=== PATIENT | female | born 1950 | race Caucasian/White ===

== ENCOUNTER 2022-07-29 12:47 | Outpatient (CLI) | payer MEDICARE, BC, SELFPAY ==
--- NOTE | 2022-07-29 13:00 | CRLHL7_ITS ---
For Patients: As a result of the Cures Act, medical imaging exams and procedure reports are released immediately into your electronic medical record. You may view this report before your referring provider. If you have questions, please contact your health care provider. DXA BONE MINERAL DENSITY STUDY, 07/29/2022 Current height (inches): 66.0 Weight (lbs.): 160.0 Menopause age: 46 Ethnicity: White 1. Have you had a previous hip or vertebral fracture? No. 2. Have you had any fractures during your adult life which did not result from significant trauma (e.g., auto accident)? Yes. 3. Did either of your parents have a hip fracture? No. 4. Do you smoke? No. 5. Have you ever taken Glucocorticoids? No. 6. Do you have rheumatoid arthritis? No. 7. Do you have secondary osteoporosis? No. 8. Do you drink 3 or more alcoholic drinks per day? No. 9. Are you being treated for osteoporosis? No. 10. Have you ever taken any of the following medications: Actonel, Evista, Fosamax, Miacalcin, Reclast, Boniva, Forteo, HRT (i.e., estrogen/hormone therapy), Protelos, Prolia, Vitamin D, Calcium, other ??? please specify. ANSWER: Yes; vitamin D and calcium. 11. Do you have any of the following medical conditions: Anorexia or bulimia, asthma or emphysema, end stage renal disease, hyperparathyroidism, any seizure disorders, cancer, inflammatory bowel diseases, hysterectomy, other ??? please specify. ANSWER: Yes; cancer and hysterectomy. 12. What was your maximum height (inches)? 67. 13. Do you perform weight bearing exercise regularly? No. 14. Do you regularly consume dairy products? No. 15. Do you drink caffeinated beverages? Yes. 16. At what age did your period start? Not provided. 17. Are you premenopausal? No. 18. How many full-term pregnancies have you had? 0. 19. Have you ever missed your period for more than 6 months in a row (not including or menopause)? No. TECHNIQUE: Bone mineral density study was performed using the [employer]. FINDINGS: The results of the study expressed as bone mineral density (BMD) are as follows: Lumbar Spine L1 to L4: BMD: 1.028 g/cm2. T-score: -0.2. Z-score: 2.0. Neck Left: BMD: 0.702 g/cm2. T-score: -1.3. Z-score: 0.6. Right: BMD: 0.831 g/cm2. T-score: -0.2. Z-score: 1.7. Total Left: BMD: 0.757 g/cm2. T-score: -1.5. Z-score: 0.1. Right: BMD: 0.783 g/cm2. T-score: -1.3. Z-score: 0.3. IMPRESSION: Osteopenia. FRAX 10-year Fracture Risk Major Osteoporotic Fracture: 16 percent Hip Fracture: 2.1 percent Reported Risk Factors: [place] () Neck BMD = 0.702, BMI = 25.8, previous fracture. MARISELA MIN M.D. Diagnostic/Breast Radiologist [email or web address] Transcribed: 5:[address]/Dictated by: Marisela Min MD @ 07/30/2022 4:47:00 PM (Electronically Signed)
== END 2022-07-29 12:48 | disposition home or self-care (01) ==
LOC: RAD 12:50
PROVIDERS: PCP Family Medicine; Visit Provider Family Medicine
DX: M81.0 Age-related osteoporosis without current pathological fracture (principal)
CPT/HCPCS: 77080

== ENCOUNTER 2022-09-22 13:41 | Outpatient (REF) | payer MEDICARE, BC, SELFPAY ==
[2022-09-22 13:59] LABS: Basophils Absolute Auto 0.04 K/uL (0.00-0.30); Basophils Percent Auto 0.6 % (0.0-3.0); Eosinophils Absolute Auto 0.23 K/uL (0.00-0.50); Eosinophils Percent Auto 3.6 % (0.0-7.0); Hematocrit 38.3 % (33.0-51.0); Hemoglobin* 12.7 gm/dL (12.0-16.0); Immature Granulocytes Abs Auto 0.01 K/uL (0.00-0.30); Lymphocytes Percent Auto 14.9 % (20-44); Mean Corpuscular HGB Conc 33 gm/dL (32-36); Mean Corpuscular Hemoglobin 31 pg (26-34); Mean Corpuscular Volume 93 fL (80-100); Neutrophils Percent Auto 72.7 % (42.0-72.0); Platelet Count* 296 K/uL (140-440); RDW Coefficient of Variation % 11.8 % (11.5-15.5); Red Blood Count 4.14 m/uL (4.00-5.20); White Blood Count* 6.39 K/uL (4.50-11.00)
[2022-09-22 14:05] LABS: Slide Review Reflex No
[2022-09-22 16:54] LABS: Chloride* 106 mmol/L (96-114); Potassium* 4.7 mmol/L (3.6-5.1); Sodium* 138 mmol/L (135-149)
[2022-09-22 16:57] LABS: Blood Urea Nitrogen* 17 mg/dL (7-30); Cholesterol* 166 mg/dL (90-199); Creatinine* 0.6 mg/dL (0.5-1.5); Estimated Glomerular Filt Rate 96 ml/min
[2022-09-22 16:59] LABS: Calcium* 7.5 mg/dL (8.4-10.6); Glucose* 115 mg/dL (60-115); HDL Cholesterol* 39 mg/dL (>=50); LDL Cholesterol Calculated 90 mg/dL (<100); Triglycerides* 183 mg/dL (40-149)
[2022-09-22 17:13] LABS: Carbon Dioxide* 23 mmol/L (20-32)
[2022-09-22 22:51] LABS: Thyroid Stimulating Hormone* 0.404 uIU/mL (0.270-4.20)
== END 2022-09-22 13:42 | disposition home or self-care (01) ==
LOC: NPINS 13:41
PROVIDERS: PCP Family Medicine; Visit Provider Nurse Practitioner Gerontology
DX: E03.9 Hypothyroidism, unspecified (principal)
CPT/HCPCS: 80048; 80061; 84443; 85025

== ENCOUNTER 2023-03-13 16:12 | Outpatient (CLI) | payer MEDICARE, BC, SELFPAY | END 2023-03-13 16:13 | disposition home or self-care (01) | LOC: AMB 03-15 13:10 | PROVIDERS: PCP Family Medicine; Visit Provider Family Medicine | DX: S79.912A Unspecified injury of left hip, initial encounter (principal); W18.30XA Fall on same level, unspecified, initial encounter; Y92.003 Bedroom of unspecified non-institutional (private) residence as the place of occurrence of the external cause | CPT/HCPCS: A0425; A0429 ==

== ENCOUNTER 2023-03-13 16:46 | Inpatient (IN) | payer MEDICARE, BC, SELFPAY ==
[2023-03-13 16:54] VITALS: BP 187/75; PULSE 72; RESP 16; TEMP 35.9; O2SAT 96; BMI 25.1
--- NOTE | 2023-03-13 17:06 | CRLHL7_ITS ---
For Patients: As a result of the Cures Act, medical imaging exams and procedure reports are released immediately into your electronic medical record. You may view this report before your referring provider. If you have questions, please contact your health care provider. INDICATION: Pain after fall COMPARISON: None available. FINDINGS: An supine single view of the chest was obtained at 1900 hours. There is shallow inspiration resulting in crowding of lung markings. There is moderate eventration of the right hemidiaphragm. There is mild patchy atelectasis in both lung bases. There is no sign of rib fracture. No pneumothorax is evident, but sensitivity is limited by supine positioning. The heart is normal in size. The mediastinum is normal in appearance. The osseous structures are normal in appearance for the patient`s age. IMPRESSION: Shallow inspiration resulting in crowding of lung markings. Mild patchy atelectasis in both lung bases. Moderate eventration of the right hemidiaphragm. Dictated by Eyad Ramos MD @ 03/13/2023 8:48:27 PM (Electronically Signed)
--- NOTE | 2023-03-13 17:06 | CRLHL7_ITS ---
For Patients: As a result of the Cures Act, medical imaging exams and procedure reports are released immediately into your electronic medical record. You may view this report before your referring provider. If you have questions, please contact your health care provider. INDICATION: Fall. COMPARISON: None. TECHNIQUE: Noncontrast CT head. FINDINGS: Mild generalized volume loss. No acute intracranial hemorrhage, acute infarct, focal edema, mass effect, or fracture. No midline shift. No abnormal ventricular dilatation. Normal calvarium and skull base. Visualized paranasal sinuses and mastoid air cells are clear. Normal orbits bilaterally. IMPRESSION: 1. No acute intracranial abnormality. Please note that all CT scans at this facility use dose modulation, iterative reconstruction, and/or weight-based dosing when appropriate to reduce radiation dose to as low as reasonably achievable. Dictated by Gabriel Kwong MD @ 03/13/2023 8:14:35 PM (Electronically Signed)
--- NOTE | 2023-03-13 17:06 | CRLHL7_ITS ---
For Patients: As a result of the Cures Act, medical imaging exams and procedure reports are released immediately into your electronic medical record. You may view this report before your referring provider. If you have questions, please contact your health care provider. INDICATION: Fall. COMPARISON: None. TECHNIQUE: Noncontrast CT cervical spine. FINDINGS: Normal vertebral body facet alignment. No acute fractures. No vertebral body loss of height. No spondylolisthesis. No fractures of the visualized upper ribs. Cervical spondylosis with multilevel disc degeneration. Multilevel uncovertebral facet degeneration. C1-2: No spinal canal narrowing. C2-3: No splenic no neural foraminal narrowing. C3-4: No narrowing of spinal canal. Mild narrowing of left neural foramen. No narrowing of the right neural foramen. C4-5: No narrowing of spinal canal. Mild narrowing of bilateral foramina. C5-6: No narrowing of spinal canal. Uncovertebral joint hypertrophy results in moderate narrowing of the left neural foramen. No narrowing of the right neural foramen. C6-7: No narrowing of spinal canal. Mild narrowing of the left neural foramen. No narrowing of the right neural foramen. C7-T1: No spinal canal or neural foraminal narrowing. Lung apices are clear. IMPRESSION: 1. Normal alignment. No fractures. 2. Cervical spondylosis. 3. At C3-4, mild narrowing of the neural foramina 4. At C4-5, mild narrowing of both neural foramina 5. At C5-6, moderate narrowing of the left neuroforamen Please note that all CT scans at this facility use dose modulation, iterative reconstruction, and/or weight-based dosing when appropriate to reduce radiation dose to as low as reasonably achievable. Dictated by Gabriel Kwong MD @ 03/13/2023 8:16:38 PM (Electronically Signed)
--- NOTE | 2023-03-13 17:11 | CRLHL7_ITS ---
For Patients: As a result of the Cures Act, medical imaging exams and procedure reports are released immediately into your electronic medical record. You may view this report before your referring provider. If you have questions, please contact your health care provider. INDICATION: Pain after fall COMPARISON: None available. FINDINGS: The left hip was examined with AP and cross-table lateral views. An AP view of the pelvis is obtained for a total of three views. There is an acute, comminuted, impacted intertrochanteric fracture of the left hip with components in moderate varus. The left femoral head and acetabulum are in anatomic alignment. There is mild primary osteoarthritis of both hips with moderate joint space narrowing, but no additional degenerative change. The right hip is intact with no sign of fracture. There is mild primary osteoarthritis of both sacroiliac joints with mild sclerosis. The sacroiliac joints are intact. There is no sign of sacral fracture. The pubic symphysis is intact. The bowel gas pattern is unremarkable. IMPRESSION: Acute, comminuted, impacted, intertrochanteric fracture of the left hip with moderate varus angulation. Mild primary osteoarthritis of both hips. Dictated by Eyad Ramos MD @ 03/13/2023 8:50:45 PM (Electronically Signed)
[2023-03-13 17:15] VITALS: O2SAT 97
[2023-03-13 17:16] VITALS: O2SAT 94
[2023-03-13 17:29] LABS: Basophils Absolute Auto 0.02 K/uL (0.00-0.30); Basophils Percent Auto 0.3 % (0.0-3.0); Eosinophils Percent Auto 2.6 % (0.0-7.0); Hematocrit 40.2 % (33.0-51.0); Hemoglobin* 13.5 gm/dL (12.0-16.0); Immature Granulocytes Abs Auto 0.02 K/uL (0.00-0.30); Immature Granulocytes Pct Auto 0.3 %; Lymphocytes Percent Auto 12.9 % (20-44); Mean Corpuscular HGB Conc 34 gm/dL (32-36); Mean Corpuscular Hemoglobin 30 pg (26-34); Mean Corpuscular Volume 89 fL (80-100); Monocytes Percent Auto 5.6 % (0.0-11.0); Neutrophils Percent Auto 78.3 % (42.0-72.0); Platelet Count* 297 K/uL (140-440); RDW Coefficient of Variation % 12.2 % (11.5-15.5); White Blood Count* 7.84 K/uL (4.50-11.00)
[2023-03-13 17:39] LABS: Slide Review Reflex No
[2023-03-13 17:42] LABS: Chloride* 105 mmol/L (96-114); Sodium* 136 mmol/L (135-149)
[2023-03-13 17:44] LABS: Creatinine* 0.7 mg/dL (0.5-1.5); Est. Creatinine Clearance* 49.45; Estimated Glomerular Filt Rate 92 ml/min; INR 0.88 (0.91-1.10); Partial Thromboplastin Time* 27 Seconds (23-33); Prothrombin Time 12.5 Seconds
[2023-03-13 17:45] LABS: Blood Urea Nitrogen* 18 mg/dL (7-30); Calcium* 8.7 mg/dL (8.4-10.6); Carbon Dioxide* 24 mmol/L (20-32); Glucose* 141 mg/dL (60-115)
--- NOTE | 2023-03-13 17:48 | ED_ITS ---
HPI - Fall General Date Seen: 03/13/23 Chief Complaint: Hip Injury/Pain Stated Complaint: fell and injured hip Time Seen by Provider: 03/13/23 17:02 Source: patient and EMS Mode of arrival: EMS Limitations: no limitations and altered mental status History of Present Illness HPI Narrative: Patient is a 73-year-old female presents here from home, after she fell on her left side, injuring her left hip, initially from EMS told me she did not hit her head but she is able to tell me that she had her left ear, when she went down. In fact she thinks she might a organ assembler hearing aid. She is also a little bit altered secondary to the fentanyl that they gave her coming over here. They do note that her left leg is shortened and externally rotated. She tells me she has never before had surgery on that hip. Denies any significant headache nausea, vomiting, but again she has received fentanyl. MD complaint: fall Place fall occurred: home Loss of consciousness: No Prolonged down time: no Symptoms prior to fall: none Context: tripped/slipped Location of injury: pelvis Location of injury - extremities: Left: thigh Severity: moderate Associated symptoms (after fall): denies Related Data Home Medications Medication Instructions Recorded Confirmed acetaminophen 650 mg 1,300 mg PO Q8H PRN pain 03/13/23 03/13/23 tablet,extended release (8 Hour Pain Reliever) albuterol sulfate 90 mcg/actuation 2 puff inhalation Q6H PRN dyspnea 03/13/23 03/13/23 aerosol inhaler amantadine HCl 100 mg tablet 100 mg PO BID 03/13/23 03/13/23 azelastine 137 mcg (0.1 %) nasal 2 spray intranasal BID congestion 03/13/23 03/13/23 spray aerosol calcium carbonate 600 mg calcium 600 mg feeding tube Q1-2H PRN 03/13/23 03/13/23 (1,500 mg) tablet carbidopa 25 mg-levodopa 100 mg 1.5 tab PO 3XD 03/13/23 03/13/23 tablet carbidopa ER 50 mg-levodopa 200 mg 1 tab PO QPM 03/13/23 03/13/23 tablet,extended release cetirizine 10 mg tablet 5 mg PO BID 03/13/23 03/13/23 diltiazem HCl 240 mg 240 mg PO DAILY blood pressure 03/13/23 03/13/23 tablet,extended release 24 hr (Matzim [place]) duloxetine 60 mg capsule,delayed 60 mg PO QPM 03/13/23 03/13/23 release furosemide 20 mg tablet 10 mg PO DAILY edema 03/13/23 03/13/23 guaifenesin 600 mg tablet, 600 mg PO Q12H PRN 03/13/23 03/13/23 extended release 12 hr (Mucus Relief ER) levothyroxine 175 mcg tablet 175 mcg PO DAILY 03/13/23 03/13/23 melatonin 3 mg capsule 3 mg PO QHS 03/13/23 03/13/23 metoprolol succinate 50 mg 50 mg PO DAILY 03/13/23 03/13/23 tablet,extended release 24 hr sennosides 8.6 mg-docusate sodium 1 tab PO DAILY 03/13/23 03/13/23 50 mg tablet (Stool Softener-Stimulant Laxative) simvastatin 10 mg tablet 10 mg PO DAILY cholesterol 03/13/23 03/13/23 Allergies Allergy/AdvReac Type Severity Reaction Status Date / Time lisinopril Allergy Unknown Verified 03/13/23 17:03 Review of Systems Status of ROS: Reports: 10 or more systems reviewed and unremarkable except as noted in History and below [facility] Social History Smoking Status: Never smoker Do you use any of these nicotine containing products: None Second hand tobacco smoke exposure: No How often do you have a drink containing alcohol: never AUDIT-C Alcohol total score: 0 Non-prescribed substance use: denies use service: No Exam Narrative: Exam Narrative: Patient is seen in room a, she appears to be in no distress her vital signs are reviewed, pupils are equal round reactive to light she is very [place] cheeks, her TMs are normal, with hearing aids, in suture that are removed, she has a little bit of an abrasion over her left mastoid, slight neck area but I do not see any depressed fracture, no hematoma along her neck, good tire balancer strength bilaterally in upper extremities, both proximally distally chest is good air entry bilateral with no wheezing crackles noted heart sounds are normal, her abdomen is soft and obese her pelvis is stable to rocking but she is sore in her left hip, she refuses to move her left leg her right leg has full range of motion, and no evidence of any injury. Const: Vital Signs, click to edit/add: Vital Signs - 24 hr 03/13/23 16:54 03/13/23 17:16 03/13/23 17:15 Temperature 96.7 F L Pulse Rate [Pulse Oximeter] 72 Respiratory Rate 16 Blood Pressure [Ri ght Upper Arm] 187/75 H Pulse Oximetry 96 94 97 Oxygen Delivery Me thod Nasal Cannula Nasal Cannula Oxygen Flow Rate 3 3 Documenting provider has reviewed patient's vital signs: yes Course Reevaluation(s) Reevaluation #1: I discussed with the patient, the hip fracture, her head CT and neck CT look good by my review, her chest x-ray and EKG were also done which show no acute findings, explained to her and then also her sister on the phone hers of her POA that she should be admitted, I also discussed with her doing a fascia iliaca block on the left side, she is not on blood thinners and there is no complication used ultrasound was able to identify the nerve artery and vein, I was able to inject 20 mL of ropivacaine in the area, she had decreased pain, although she told me she still had pain, was able to move her hip through range of motion with no pain. I did discuss with hospitalist the admission, Dr. Jama, I also discussed with the orthopedic PA on-call Dr. Ketty Thomas. Vital Signs Vital signs: Initial Vital Signs Temperature 96.7 F L 03/13/23 16:54 Temperature Source Temporal Artery Scan 03/13/23 16:54 Pulse Rate 72 03/13/23 16:54 Pulse Rhythm Regular 03/13/23 16:54 Pulse Strength 3+ Normal 03/13/23 16:54 Respiratory Rate 16 03/13/23 16:54 Blood Pressure 187/75 H 03/13/23 16:54 Blood Pressure Mean 112 03/13/23 16:54 Blood Pressure Position Supine 03/13/23 16:54 Pulse Oximetry 96 03/13/23 16:54 Oxygen Delivery Method Nasal Cannula 03/13/23 16:54 Oxygen Flow Rate 3 03/13/23 16:54 Vital Signs Temperature 96.7 F L 03/13/23 16:54 Pulse Rate 72 03/13/23 16:54 Respiratory Rate 16 03/13/23 16:54 Blood Pressure 187/75 H 03/13/23 16:54 Pulse Oximetry 96 03/13/23 16:54 Oxygen Delivery Method Nasal Cannula 03/13/23 16:54 Oxygen Flow Rate 3 03/13/23 16:54 Temperature 96.7 F L 03/13/23 16:54 Pulse Rate 72 03/13/23 16:54 Respiratory Rate 16 03/13/23 16:54 Blood Pressure 187/75 H 03/13/23 16:54 Pulse Oximetry 94 03/13/23 17:16 Oxygen Delivery Method Nasal Cannula 03/13/23 17:16 Oxygen Flow Rate 3 03/13/23 17:16 MDM - Fall MDM Narrative Medical decision making narrative: Life-threatening differential diagnosis is considered include: Subarachnoid hemorrhage, subdural hemorrhage, epidural hemorrhage. Other differential diagnosis considered include concussion, closed head injury, or neck fracture. Medical Records Attestation: I reviewed the patient's medical records. Lab Data Attestation: I reviewed the patient's lab results. Labs: Lab Results 03/13/23 03/13/23 Range/Units 17:24 17:30 WBC 7.84 (4.50-11.00) K/uL RBC 4.50 (4.00-5.20) m/uL Hgb 13.5 (12.0-16.0) gm/dL Hct 40.2 (33.0-51.0) % MCV 89 (80-100) fL MCH 30 (26-34) pg MCHC 34 (32-36) gm/dL RDW Coeff of [place] 12.2 (11.5-15.5) % Plt Count 297 (140-440) K/uL Neut % (Auto) 78.3 H (42.0-72.0) % Lymph % (Auto) 12.9 L (20-44) % [place] % (Auto) 5.6 (0.0-11.0) % Eos % (Auto) 2.6 (0.0-7.0) % Baso % (Auto) 0.3 (0.0-3.0) % Neut # (Auto) 6.10 (1.7-7.0) K/uL Lymph # (Auto) 1.00 (0.90-2.90) K/uL [place] # (Auto) 0.40 (0.00-0.90) K/UL Eos # (Auto) 0.20 (0.00-0.50) K/uL Baso # (Auto) 0.02 (0.00-0.30) K/uL INR 0.88 L (0.91-1.10) APTT 27 (23-33) Seconds Sodium 136 (135-149) mmol/L Potassium 4.0 (3.6-5.1) mmol/L Chloride 105 (96-114) mmol/L Carbon Dioxide 24 (20-32) mmol/L BUN 18 (7-30) mg/dL Creatinine 0.7 (0.5-1.5) mg/dL Estimated Creat Clear 49.45 Estimated GFR 92 ml/min Glucose 141 H (60-115) mg/dL Calcium 8.7 (8.4-10.6) mg/dL SARS-CoV-2 (PCR) Negative SARS-CoV-2 (Negative) Discharge Plan Discharge Clinical Impression: Closed hip fracture Patient Disposition: Admitted As Inpatient Condition: Improved
[2023-03-13] MEDS: HYDROmorphone 0.5 mg/0.5 ml inj IVP ×2 (18:18→22:09)
[2023-03-13 18:25] LABS: SARS PCR* Negative SARS-CoV-2 (Negative)
[2023-03-13] MEDS: ROPIVACAINE 0.5% 30 ML 150 MG INJECTION (20:08)
[2023-03-13 21:41] VITALS: BP 183/65; PULSE 68; RESP 18; TEMP 36.5; O2SAT 94; BMI 26.5
[2023-03-13 22:48] VITALS: BP 156/76; PULSE 73; RESP 18; TEMP 36.5; O2SAT 93
--- NOTE | 2023-03-13 22:53 | P.IMHP_ITS ---
Hospitalist- H&P: HPI History of Present Illness Time Seen by Provider: 22:53 Date Seen: 03/13/23 Chief complaint: fell and injured hip Narrative: Lian Canseco is a 73 year old female with parkinsonism, living in assisted living at [facility], fell today and broke her left hip. Recently she has been in physical therapy for some knee pain and has been doing all the exercises in feels that that was going well. She had a fall last week where she tripped, but did not sustain any injuries. Today she was standing at the sink washing her hands and so she did not have her walker in front of her and she tried to moved backward when she was done, but ended up falling. She denies any loss of consciousness. She denies any lightheadedness or dizziness now or that contributed to the fall. She had a hip block in the emergency department, but it has not improved her pain. She got Dilaudid IV which has been helpful and she feels a bit better now. Review of Systems Status of ROS: Reports: 10 or more systems reviewed and unremarkable except as noted in History and below GI: Reports: diarrhea (Several times a week, takes senna daily even when having diarrhea) [facility] Medical History (Updated 03/14/23 @ 00:01 by Maryann Jama MD) Blood glucose abnormal ?R73.09 - Other abnormal glucose (ICD-10) Epidermal inclusion cyst ?L72.0 - Epidermal cyst (ICD-10) Essential hypertension ?I10 - Essential (primary) hypertension (ICD-10) Hyperlipidemia ?E78.5 - Hyperlipidemia, unspecified (ICD-10) Hypothyroidism ?E03.9 - Hypothyroidism, unspecified (ICD-10) Malignant neoplasm of breast (female) ?C50.919 - Malignant neoplasm of unspecified site of unspecified female breast (ICD-10) Osteopenia (~2008) ?M85.80 - Other specified disorders of bone density and structure, unspecified site (ICD-10) Parkinson disease (~12/20/17) ?G20 - Parkinson's disease (ICD-10) Sustained supraventricular tachycardia (~01/16/09) ?I47.1 - Supraventricular tachycardia (ICD-10) Surgical History (Updated 03/13/23 @ 20:22 by Maryann Jama MD) H/O excision of mass (10/18/19) ?Z98.890 - Other specified postprocedural states (ICD-10) Hx of colonoscopy ?Z98.890 - Other specified postprocedural states (ICD-10) Social History (Updated 03/13/23 @ 23:45 by Maryann Jama MD) Narrative: Full code. Lives in assisted living at [facility]. Her medications are bubble packed and she takes them independently. She denies tobacco, alcohol, or recreational drug use. Highest level of school completed/degree received: some college, no degree Smoking Status: Never smoker Do you use any of these nicotine containing products: None Second hand tobacco smoke exposure: No How often do you have a drink containing alcohol: never AUDIT-C Alcohol total score: 0 Non-prescribed substance use: denies use Caffeine: Yes (coffee) service: No Meds Home Medications and Allergies Home Medications Medication Instructions Recorded Confirmed Type acetaminophen 650 mg 1,300 mg PO Q8H PRN pain 03/13/23 03/13/23 History tablet,extended release (8 Hour Pain Reliever) albuterol sulfate 90 mcg/actuation 2 puff inhalation Q6H PRN dyspnea 03/13/23 03/13/23 History aerosol inhaler amantadine HCl 100 mg tablet 100 mg PO BID 03/13/23 03/13/23 History azelastine 137 mcg (0.1 %) nasal 2 spray intranasal BID congestion 03/13/23 03/13/23 History spray aerosol calcium carbonate 600 mg calcium 600 mg feeding tube Q1-2H PRN 03/13/23 03/13/23 History (1,500 mg) tablet carbidopa 25 mg-levodopa 100 mg 1.5 tab PO 3XD 03/13/23 03/13/23 History tablet carbidopa ER 50 mg-levodopa 200 mg 1 tab PO QPM 03/13/23 03/13/23 History tablet,extended release cetirizine 10 mg tablet 5 mg PO BID 03/13/23 03/13/23 History diltiazem HCl 240 mg 240 mg PO DAILY blood pressure 03/13/23 03/13/23 History tablet,extended release 24 hr (Matzim [place]) duloxetine 60 mg capsule,delayed 60 mg PO QPM 03/13/23 03/13/23 History release furosemide 20 mg tablet 10 mg PO DAILY edema 03/13/23 03/13/23 History guaifenesin 600 mg tablet, 600 mg PO Q12H PRN 03/13/23 03/13/23 History extended release 12 hr (Mucus Relief ER) levothyroxine 175 mcg tablet 175 mcg PO DAILY 03/13/23 03/13/23 History melatonin 3 mg capsule 3 mg PO QHS 03/13/23 03/13/23 History metoprolol succinate 50 mg 50 mg PO DAILY 03/13/23 03/13/23 History tablet,extended release 24 hr sennosides 8.6 mg-docusate sodium 1 tab PO DAILY 03/13/23 03/13/23 History 50 mg tablet (Stool Softener-Stimulant Laxative) simvastatin 10 mg tablet 10 mg PO DAILY cholesterol 03/13/23 03/13/23 History Allergies Allergy/AdvReac Type Severity Reaction Status Date / Time lisinopril Allergy Unknown Verified 03/13/23 17:03 Exam Narrative: Exam Narrative: General: No acute distress. A little sleepy, suspect from recent Dilaudid, but awake and able to carry on a conversation. Oriented x3. Masked facies. HEENT: Normocephalic atraumatic, pupils equally round and reactive to light and accommodation. Oropharynx clear. Mucous membranes are moist. No cervical lymphadenopathy, thyromegaly or carotid bruits. No JVD. Cardiovascular: Regular rate and rhythm. No murmurs, gallops, or rubs. Chest: No increased work of breathing. Clear to auscultation bilaterally. No crackles or wheezes. Abdomen: Bowel sounds present. Soft, mildly distended, nontender to palpation. No hepatosplenomegaly or masses. Extremities: Left lower extremity is shortened and externally rotated. Trace bilateral pretibial edema, no cyanosis or clubbing. Skin: No jaundice, no pallor, no rashes. Neuro: Some cogwheel rigidity in both upper arms. Const: Vital Signs, click to edit/add: Vital Signs - 24 hr 03/13/23 16:54 03/13/23 17:16 03/13/23 17:15 Temperature 96.7 F L Pulse Rate [Pulse Oximeter] 72 Respiratory Rate 16 Blood Pressure [Le ft Arm] Blood Pressure [Ri ght Upper Arm] 187/75 H Pulse Oximetry 96 94 97 Oxygen Delivery Me thod Nasal Cannula Nasal Cannula Oxygen Flow Rate 3 3 03/13/23 21:41 Temperature 97.7 F Pulse Rate [Pulse Oximeter] 68 Respiratory Rate 18 Blood Pressure [Le ft Arm] 183/65 H Blood Pressure [Ri ght Upper Arm] Pulse Oximetry 94 Oxygen Delivery Me thod Nasal Cannula Oxygen Flow Rate 2.0 Documenting provider has reviewed patient's vital signs: yes Hospitalist - H&P: Result Labs Labs: Short CBC 03/13/23 Range/Units 17:24 WBC 7.84 (4.50-11.00) K/uL Hgb 13.5 (12.0-16.0) gm/dL Hct 40.2 (33.0-51.0) % Plt Count 297 (140-440) K/uL BMP 03/13/23 17:24 Sodium 136 Potassium 4.0 Chloride 105 Carbon Dioxide 24 BUN 18 Creatinine 0.7 Glucose 141 H Calcium 8.7 Ordering Physician: Hnas Negrete M.D. Date of Service: 03/13/23 Procedure(s): CT cervical spine wo con Accession Number(s): [id number] cc: Jhony Retana M.D.; Hans Negrete M.D.~ For Patients: As a result of the Cures Act, medical imaging exams and procedure reports are released immediately into your electronic medical record. You may view this report before your referring provider. If you have questions, please contact your health care provider. INDICATION: Fall. COMPARISON: None. TECHNIQUE: Noncontrast CT cervical spine. FINDINGS: Normal vertebral body facet alignment. No acute fractures. No vertebral body loss of height. No spondylolisthesis. No fractures of the visualized upper ribs. Cervical spondylosis with multilevel disc degeneration. Multilevel uncovertebral facet degeneration. C1-2: No spinal canal narrowing. C2-3: No splenic no neural foraminal narrowing. C3-4: No narrowing of spinal canal. Mild narrowing of left neural foramen. No narrowing of the right neural foramen. C4-5: No narrowing of spinal canal. Mild narrowing of bilateral foramina. C5-6: No narrowing of spinal canal. Uncovertebral joint hypertrophy results in moderate narrowing of the left neural foramen. No narrowing of the right neural foramen. C6-7: No narrowing of spinal canal. Mild narrowing of the left neural foramen. No narrowing of the right neural foramen. C7-T1: No spinal canal or neural foraminal narrowing. Lung apices are clear. IMPRESSION: 1. Normal alignment. No fractures. 2. Cervical spondylosis. 3. At C3-4, mild narrowing of the neural foramina 4. At C4-5, mild narrowing of both neural foramina 5. At C5-6, moderate narrowing of the left neuroforamen Please note that all CT scans at this facility use dose modulation, iterative reconstruction, and/or weight-based dosing when appropriate to reduce radiation dose to as low as reasonably achievable. Dictated by Gabriel Kwong MD @ 03/13/2023 8:16:38 PM (Electronically Signed) rdering Physician: Hans Negrete M.D. Date of Service: 03/13/23 Procedure(s): XR chest 1V Accession Number(s): [id number] cc: Jhony Retana M.D.; Hans Negrete M.D.~ For Patients: As a result of the Cures Act, medical imaging exams and procedure reports are released immediately into your electronic medical record. You may view this report before your referring provider. If you have questions, please contact your health care provider. INDICATION: Pain after fall COMPARISON: None available. FINDINGS: An supine single view of the chest was obtained at 1900 hours. There is shallow inspiration resulting in crowding of lung markings. There is moderate eventration of the right hemidiaphragm. There is mild patchy atelectasis in both lung bases. There is no sign of rib fracture. No pneumothorax is evident, but sensitivity is limited by supine positioning. The heart is normal in size. The mediastinum is normal in appearance. The osseous structures are normal in appearance for the patient`s age. IMPRESSION: Shallow inspiration resulting in crowding of lung markings. Mild patchy atelectasis in both lung bases. Moderate eventration of the right hemidiaphragm. Dictated by Eyad Ramos MD @ 03/13/2023 8:48:27 PM (Electronically Signed) Ordering Physician: Hans Negrete M.D. Date of Service: 03/13/23 Procedure(s): CT head/brain wo con Accession Number(s): [id number] cc: Jhony Retana M.D.; Hans Negrete M.D.~ For Patients: As a result of the Cures Act, medical imaging exams and procedure reports are released immediately into your electronic medical record. You may view this report before your referring provider. If you have questions, please contact your health care provider. INDICATION: Fall. COMPARISON: None. TECHNIQUE: Noncontrast CT head. FINDINGS: Mild generalized volume loss. No acute intracranial hemorrhage, acute infarct, focal edema, mass effect, or fracture. No midline shift. No abnormal ventricular dilatation. Normal calvarium and skull base. Visualized paranasal sinuses and mastoid air cells are clear. Normal orbits bilaterally. IMPRESSION: 1. No acute intracranial abnormality. Please note that all CT scans at this facility use dose modulation, iterative reconstruction, and/or weight-based dosing when appropriate to reduce radiation dose to as low as reasonably achievable. Dictated by Gabriel Kwong MD @ 03/13/2023 8:14:35 PM (Electronically Signed) Ordering Physician: Hans Negrete M.D. Date of Service: 03/13/23 Procedure(s): XR hip LT min 2V Accession Number(s): [id number] cc: Jhony Retana M.D.; Hans Negrete M.D.~ For Patients: As a result of the Cures Act, medical imaging exams and procedure reports are released immediately into your electronic medical record. You may view this report before your referring provider. If you have questions, please contact your health care provider. INDICATION: Pain after fall COMPARISON: None available. FINDINGS: The left hip was examined with AP and cross-table lateral views. An AP view of the pelvis is obtained for a total of three views. There is an acute, comminuted, impacted intertrochanteric fracture of the left hip with components in moderate varus. The left femoral head and acetabulum are in anatomic alignment. There is mild primary osteoarthritis of both hips with moderate joint space narrowing, but no additional degenerative change. The right hip is intact with no sign of fracture. There is mild primary osteoarthritis of both sacroiliac joints with mild sclerosis. The sacroiliac joints are intact. There is no sign of sacral fracture. The pubic symphysis is intact. The bowel gas pattern is unremarkable. IMPRESSION: Acute, comminuted, impacted, intertrochanteric fracture of the left hip with moderate varus angulation. Mild primary osteoarthritis of both hips. Dictated by Eyad Ramos MD @ 03/13/2023 8:50:45 PM (Electronically Signed) 03/13/2023 5:21 p.m. EKG: Normal sinus rhythm. Heart rate 65 beats per minute. Possible left atrial enlargement. Possible anterior infarct, age undetermined. Assessment and Plan Assessment and plan (1) Closed hip fracture: Problem comment: Admit for surgery for hip fracture tomorrow. Ortho is aware. Bedrest. Keep NPO overnight and avoid pharmacologic prophylaxis for VTE. Status: Acute (2) Osteopenia: Problem comment: With a hip fracture from standing height, she now has osteoporosis. May be considered for bisphosphonate as an outpatient. She already takes calcium as an outpatient, will also need vitamin-D. Status: Acute (3) Hyperlipidemia: Problem comment: Continue medications. Status: Acute (4) Essential hypertension: Problem comment: Continue home medications. Status: Acute (5) Parkinson disease: Problem comment: Continue home medications. This will likely make rehab little more difficult. May need long-term upon discharge. Status: Acute
[2023-03-14] VITALS (26 sets, daily range): BP systolic 121–172; BP diastolic 54–84; PULSE 72–91; RESP 12–22; TEMP 36–37.1; O2SAT 85–98
[2023-03-14] MEDS: MELATONIN 3 MG TABLET PO ×2 (00:38→21:10)
[2023-03-14] MEDS: LACTATED RINGERS 1000 ML 1,000 ML 75 ML IV ×2 (00:38→12:15)
[2023-03-14] MEDS: HYDROmorphone 0.5 mg/0.5 ml inj IVP ×6 (00:38→16:42)
[2023-03-14] MEDS: SODIUM CHLORIDE 0.9 % (FLUSH) 10 ML SYRINGE 5 ML IVF ×4 (00:38→21:11)
--- NOTE | 2023-03-14 05:24 | PC.NURSE ---
Addendum entered by Caprice Larry RN 03/14/23 06:41: Patient c/o itching. Also displaying increased dyskinesia d/t Parkinson disease. Nikita updated. Benadryl ordered and administered. Nikita verbal order to administer 0900 dose of Sinemet early. Original Note: Patient to unit at 2044. A&Ox3 with delayed responses. PRN Dilaudid administered for L.hip pain d/t Fx. Active ice applied. Patient tolerated bedrest w/bedpan for voiding. NPO @0000.
[2023-03-14] MEDS: LEVOTHYROXINE 75 MCG TABLET PO (06:02)
[2023-03-14] MEDS: LEVOTHYROXINE 100 MCG TABLET PO (06:02)
[2023-03-14] MEDS: diphenhydrAMINE 50 MG/ML inj IVP (06:13)
[2023-03-14] MEDS: CARBIDOPA-LEVODOPA 25-100 TABLET 1.5 TAB PO ×2 (06:19→21:10)
--- NOTE | 2023-03-14 09:11 | PM.IMPN1 ---
Progress Note: A&P Assessment and plan (1) Closed hip fracture: Problem details: Surgery for hip fracture at noon today. Ortho is aware. Bedrest. Keep NPO overnight and avoid pharmacologic prophylaxis for VTE until postop. Status: Acute (2) Parkinson disease: Problem details: Continue home medications. This will likely make rehab little more difficult. May need residential upon discharge. Status: Acute (3) Osteopenia: Problem details: With a hip fracture from standing height, she now has osteoporosis. May be considered for bisphosphonate as an outpatient. She already takes calcium as an outpatient, will also need vitamin-D. Status: Acute (4) Essential hypertension: Problem details: Continue home medications. She has had SVT in the past preumably that is why she is on both metoprolol and diltiazem. Status: Acute (5) Environmental allergies: Problem details: She takes Flovent scheduled and Albuterol prn for this. Her Flovent dose is not documented in her MAR from [facility] and they are not answering the phone there. Placed her on Flovent 220 for now. Status: Acute Subjective Time Seen by Provider: 09:12 Date Seen: 03/14/23 Interval history: Subjective: Lian was admitted to the hospital yesterday with a left hip fracture. She had some problems during the night and early this morning with her Parkinson's because of a delay in getting her Sinemet. Her symptoms are improving since she got her Sinemet. She denies any chest pain or shortness of breath she denies any wheezing or coughing. She reports that she does take Flovent twice daily scheduled for her allergies and she has not received that yet. Exam Const: Vital Signs, click to edit/add: Vital Signs - 24 hr 03/13/23 16:54 03/13/23 17:16 03/13/23 17:15 Temperature 96.7 F L Pulse Rate [Pulse Oximeter] 72 Respiratory Rate 16 Blood Pressure [Le ft Arm] Blood Pressure [Ri ght Upper Arm] 187/75 H Pulse Oximetry 96 94 97 Oxygen Delivery Me thod Nasal Cannula Nasal Cannula Oxygen Flow Rate 3 3 03/13/23 21:41 03/13/23 22:48 03/14/23 00:01 Temperature 97.7 F 97.7 F Pulse Rate [Pulse Oximeter] 68 73 Respiratory Rate 18 18 Blood Pressure [Le ft Arm] 183/65 H 156/76 H Blood Pressure [Ri ght Upper Arm] Pulse Oximetry 94 93 93 Oxygen Delivery Me thod Nasal Cannula Nasal Cannula Oxygen Flow Rate 2.0 2.0 03/14/23 03:09 Temperature 98.1 F Pulse Rate [Pulse Oximeter] 85 Respiratory Rate 22 Blood Pressure [Le ft Arm] 121/76 Blood Pressure [Ri ght Upper Arm] Pulse Oximetry 92 Oxygen Delivery Me thod Nasal Cannula Oxygen Flow Rate 2.0 Cardiovascular regular rate and rhythm without murmur. Lungs are clear to auscultation bilaterally. Abdomen positive bowel sounds soft and nontender. Left hip is tender, her left leg is shortened and rotated Extremities no peripheral edema is noted and no calf tenderness is present. Homans sign is negative. Labs Labs: Laboratory Results - last 24 hr 03/13/23 03/13/23 17:24 17:30 WBC 7.84 RBC 4.50 Hgb 13.5 Hct 40.2 MCV 89 MCH 30 MCHC 34 RDW Coeff of [place]ber 12.2 Plt Count 297 Neut % (Auto) 78.3 H Lymph % (Auto) 12.9 L [place] % (Auto) 5.6 Eos % (Auto) 2.6 Baso % (Auto) 0.3 Neut # (Auto) 6.10 Lymph # (Auto) 1.00 [place] # (Auto) 0.40 Eos # (Auto) 0.20 Baso # (Auto) 0.02 INR 0.88 L APTT 27 Sodium 136 Potassium 4.0 Chloride 105 Carbon Dioxide 24 BUN 18 Creatinine 0.7 Estimated Creat Clear 49.45 Estimated GFR 92 Glucose 141 H Calcium 8.7 SARS-CoV-2 (PCR) Negative SARS-CoV-2 Imaging xr hip: Radiologist's impression: [place] [address] Diagnostic Imaging Report Patient: Lian Canseco MR#: [id number] : 1950 Acct:[id number] Loc: [id number] Service Date: 03/13/[address]: Maryann Jama M.D. Ordering Physician: Hans Negrete M.D. Date of Service: 03/13/23 Procedure(s): XR hip LT min 2V Accession Number(s): [id number] cc: Jhony Retana M.D.; Hans Negrete M.D.~ For Patients:? As a result of the 21st Century Cures Act, medical imaging exams and procedure reports are released immediately into your electronic medical record.? You may view this report before your referring provider.? If you have questions, please contact your health care provider. INDICATION: Pain after fall COMPARISON: None available. FINDINGS: The left hip was examined with AP and cross-table lateral views. An AP view of the pelvis is obtained for a total of three views. There is an acute, comminuted, impacted intertrochanteric fracture of the left hip with components in moderate varus. The left femoral head and acetabulum are in anatomic alignment. There is mild primary osteoarthritis of both hips with moderate joint space narrowing, but no additional degenerative change. The right hip is intact with no sign of fracture. There is mild primary osteoarthritis of both sacroiliac joints with mild sclerosis. The sacroiliac joints are intact. There is no sign of sacral fracture. The pubic symphysis is intact. The bowel gas pattern is unremarkable. IMPRESSION: Acute, comminuted, impacted, intertrochanteric fracture of the left hip with moderate varus angulation. Mild primary osteoarthritis of both hips. Dictated by Eyad Ramos MD @ 03/13/2023 8:50:45 PM
[2023-03-14] MEDS: CETIRIZINE HCL 10 MG TABLET 5 MG PO ×2 (09:21→21:10)
[2023-03-14] MEDS: dilTIAZem 120 MG CAP.ER.24H 240 MG PO (09:21)
[2023-03-14] MEDS: METOPROLOL SUCCINATE (XL) 50 MG TAB PO (09:22)
[2023-03-14] MEDS: FUROSEMIDE 20 MG TABLET 10 MG PO (09:22)
[2023-03-14] MEDS: SENNOSIDES/DOCUSATE TABLET 1 TAB PO (09:23)
[2023-03-14] MEDS: SIMVASTATIN 10 MG TABLET PO (09:23)
--- NOTE | 2023-03-14 09:41 | PM.IMPN1 ---
Progress Note: A&P Time Spent With Patient Total time spent: 35 minutes Exam Const: Vital Signs, click to edit/add: Vital Signs - 24 hr 03/13/23 16:54 03/13/23 17:16 03/13/23 17:15 Temperature 96.7 F L Pulse Rate [Pulse Oximeter] 72 Respiratory Rate 16 Blood Pressure [Le ft Arm] Blood Pressure [Ri ght Upper Arm] 187/75 H Pulse Oximetry 96 94 97 Oxygen Delivery Me thod Nasal Cannula Nasal Cannula Oxygen Flow Rate 3 3 03/13/23 21:41 03/13/23 22:48 03/14/23 00:01 Temperature 97.7 F 97.7 F Pulse Rate [Pulse Oximeter] 68 73 Respiratory Rate 18 18 Blood Pressure [Le ft Arm] 183/65 H 156/76 H Blood Pressure [Ri ght Upper Arm] Pulse Oximetry 94 93 93 Oxygen Delivery Me thod Nasal Cannula Nasal Cannula Oxygen Flow Rate 2.0 2.0 03/14/23 03:09 Temperature 98.1 F Pulse Rate [Pulse Oximeter] 85 Respiratory Rate 22 Blood Pressure [Le ft Arm] 121/76 Blood Pressure [Ri ght Upper Arm] Pulse Oximetry 92 Oxygen Delivery Me thod Nasal Cannula Oxygen Flow Rate 2.0 Labs Labs: Laboratory Results - last 24 hr 03/13/23 03/13/23 17:24 17:30 WBC 7.84 RBC 4.50 Hgb 13.5 Hct 40.2 MCV 89 MCH 30 MCHC 34 RDW Coeff of Heber 12.2 Plt Count 297 Neut % (Auto) 78.3 H Lymph % (Auto) 12.9 L [place] % (Auto) 5.6 Eos % (Auto) 2.6 Baso % (Auto) 0.3 Neut # (Auto) 6.10 Lymph # (Auto) 1.00 [place] # (Auto) 0.40 Eos # (Auto) 0.20 Baso # (Auto) 0.02 INR 0.88 L APTT 27 Sodium 136 Potassium 4.0 Chloride 105 Carbon Dioxide 24 BUN 18 Creatinine 0.7 Estimated Creat Clear 49.45 Estimated GFR 92 Glucose 141 H Calcium 8.7 SARS-CoV-2 (PCR) Negative SARS-CoV-2
--- NOTE | 2023-03-14 11:04 | CRLHL7_ITS ---
For Patients: As a result of the Cures Act, medical imaging exams and procedure reports are released immediately into your electronic medical record. You may view this report before your referring provider. If you have questions, please contact your health care provider. Indication: INTRA-OP FEMUR RODDING Technique: Four fluoroscopic images left femur. Fluoroscopic time 1 minute 6.1 seconds. IMPRESSION: Fluoroscopic guidance for open reduction internal fixation left proximal femoral fracture. Dictated by Jai Woo MD @ 03/15/2023 9:20:26 AM (Electronically Signed)
--- NOTE | 2023-03-14 12:08 | P.ORCN_ITS ---
History of Present Illness HPI Date Seen: 03/14/23 Chief complaint: fell and injured hip Narrative: Lian is a 73 year old female with parkinsonism. She resides at assisted living at in her see. Reports a fall from a standing height landing onto the lateral left hip. Unable to bear weight. Significant pain. She denies any loss of consciousness lightheadedness or dizziness around the time of the fall.? She presented [facility]. X-rays were obtained revealed a left inte rtrochanteric femur fracture. She had a rickie nerve block in the emergency department, but it has not improved her pain.? IV Dilaudid did provide some pain relief since. Her sister is present at the bedside upon my interview, she is a retired family physician. Helpful to have her expertise. Lian provides some of the history but her sister, Zara, augments a majority of the history. Review of Systems Status of ROS: Reports: 10 or more systems reviewed and unremarkable except as noted in History and below Narrative: Denies fevers or chills. Denies nausea or vomiting. Denies chest pain or shortness of breath. No blurred vision, double vision, or headaches. No easy bleeding or bruising or clotting disorders in herself. Parkinsonism is noted. Environmental allergies noted along with hyperlipidemia and essential hypertension in her history. The patient denies throat pain or neck pain. Denies skin itching or changes in color. Does note the left hip pain related to the left intertrochanteric femur fracture. [facility] Medical History Blood glucose abnormal ?R73.09 - Other abnormal glucose (ICD-10) Environmental allergies ?Z91.09 - Other allergy status, other than to drugs and biological substances (ICD-10) Epidermal inclusion cyst ?L72.0 - Epidermal cyst (ICD-10) Essential hypertension ?I10 - Essential (primary) hypertension (ICD-10) Hyperlipidemia ?E78.5 - Hyperlipidemia, unspecified (ICD-10) Hypothyroidism ?E03.9 - Hypothyroidism, unspecified (ICD-10) Malignant neoplasm of breast (female) ?C50.919 - Malignant neoplasm of unspecified site of unspecified female breast (ICD-10) Osteopenia (~2008) ?M85.80 - Other specified disorders of bone density and structure, unspecified site (ICD-10) Parkinson disease (~12/20/17) ?G20 - Parkinson's disease (ICD-10) Sustained supraventricular tachycardia (~01/16/09) ?I47.1 - Supraventricular tachycardia (ICD-10) Surgical History H/O excision of mass (10/18/19) ?Z98.890 - Other specified postprocedural states (ICD-10) Hx of colonoscopy ?Z98.890 - Other specified postprocedural states (ICD-10) Social History Narrative: Full code. Lives in assisted living at [facility]. Her medications are bubble packed and she takes them independently. She denies tobacco, alcohol, or recreational drug use. Highest level of school completed/degree received: some college, no degree Smoking Status: Never smoker Do you use any of these nicotine containing products: None Second hand tobacco smoke exposure: No How often do you have a drink containing alcohol: never AUDIT-C Alcohol total score: 0 Non-prescribed substance use: denies use Caffeine: Yes (coffee) service: No Meds Home Medications and Allergies Home Medications Medication Instructions Recorded Confirmed Type acetaminophen 650 mg 1,300 mg PO Q8H PRN pain 03/13/23 03/13/23 History tablet,extended release (8 Hour Pain Reliever) albuterol sulfate 90 mcg/actuation 2 puff inhalation Q6H PRN dyspnea 03/13/23 03/13/23 History aerosol inhaler amantadine HCl 100 mg tablet 100 mg PO BID 03/13/23 03/13/23 History azelastine 137 mcg (0.1 %) nasal 2 spray intranasal BID congestion 03/13/23 03/13/23 History spray aerosol carbidopa 25 mg-levodopa 100 mg 1.5 tab PO 3XD 03/13/23 03/13/23 History tablet carbidopa ER 50 mg-levodopa 200 mg 1 tab PO QPM 03/13/23 03/13/23 History tablet,extended release cetirizine 10 mg tablet 5 mg PO BID 03/13/23 03/13/23 History diltiazem HCl 240 mg 240 mg PO DAILY blood pressure 03/13/23 03/13/23 History tablet,extended release 24 hr (Matzim [place]) duloxetine 60 mg capsule,delayed 60 mg PO QPM 03/13/23 03/13/23 History release furosemide 20 mg tablet 10 mg PO DAILY edema 03/13/23 03/13/23 History guaifenesin 600 mg tablet, 600 mg PO Q12H PRN 03/13/23 03/13/23 History extended release 12 hr (Mucus Relief ER) levothyroxine 175 mcg tablet 175 mcg PO DAILY 03/13/23 03/13/23 History metoprolol succinate 50 mg 50 mg PO DAILY 03/13/23 03/13/23 History tablet,extended release 24 hr sennosides 8.6 mg-docusate sodium 1 tab PO DAILY 03/13/23 03/13/23 History 50 mg tablet (Stool Softener-Stimulant Laxative) simvastatin 10 mg tablet 10 mg PO DAILY cholesterol 03/13/23 03/13/23 History calcium carbonate 600 mg-vitamin 1 tab PO BID 03/14/23 03/14/23 History D3 10 mcg (400 unit) tablet (Calcium 600 + D(3)) carboxymethylcellulose sodium 0.5 2 drp ophthalmic (eye) Q6H PRN 03/14/23 03/14/23 History % eye drops (Refresh Tears) fluticasone propionate 220 2 puff inhalation BID allergies 03/14/23 03/14/23 History mcg/actuation HFA aerosol inhaler (Flovent HFA) melatonin 3 mg tablet 3 mg PO HS PRN 03/14/23 03/14/23 History Allergies Allergy/AdvReac Type Severity Reaction Status Date / Time lisinopril Allergy Unknown Verified 03/13/23 17:03 Ortho Exam Narrative Exam Narrative: She is alert and cooperative with the exam today. Somewhat slow with conversation likely related to the parkinsonism. Appropriate hearing. Appropriate interaction. She is lying in bed supine, comfortably in no acute distress. Exam of the left lower extremity shows no erythema, induration, or other cutaneous changes. She is without pain around the hip during ankle range of motion She does have some hip pain with knee or hip range of motion otherwise. Neurologic intact distally in the superficial and deep peroneal as well as plantar distribution. 2+ DP and PT pulse. Strength and stability test on hip deferred for obvious reason. Gait and station also deferred. Const Vital Signs, click to edit/add: Vital Signs - 24 hr 03/13/23 16:54 03/13/23 17:16 03/13/23 17:15 Temperature 96.7 F L Pulse Rate [Left Apical] Pulse Rate [Pulse Oximeter] 72 Respiratory Rate 16 Blood Pressure [Left Arm] Blood Pressure [Right Upper Arm] 187/75 H Pulse Oximetry 96 94 97 Oxygen Delivery Method Nasal Cannula Nasal Cannula Oxygen Flow Rate 3 3 03/13/23 21:41 03/13/23 22:48 03/14/23 00:01 Temperature 97.7 F 97.7 F Pulse Rate [Left Apical] Pulse Rate [Pulse Oximeter] 68 73 Respiratory Rate 18 18 Blood Pressure [Left Arm] 183/65 H 156/76 H Blood Pressure [Right Upper Arm] Pulse Oximetry 94 93 93 Oxygen Delivery Method Nasal Cannula Nasal Cannula Oxygen Flow Rate 2.0 2.0 03/14/23 03:09 03/14/23 07:35 03/14/23 07:35 Temperature 98.1 F 97.5 F L Pulse Rate [Left Apical] 85 Pulse Rate [Pulse Oximeter] 85 Respiratory Rate 22 18 Blood Pressure [Left Arm] 121/76 132/69 Blood Pressure [Right Upper Arm] Pulse Oximetry 92 93 95 Oxygen Delivery Method Nasal Cannula Nasal Cannula Nasal Cannula Oxygen Flow Rate 2.0 2 Results Labs Labs: Laboratory Results - last 48 hr 03/13/23 03/13/23 17:24 17:30 WBC 7.84 RBC 4.50 Hgb 13.5 Hct 40.2 MCV 89 MCH 30 MCHC 34 RDW Coeff of Heber 12.2 Plt Count 297 Neut % (Auto) 78.3 H Lymph % (Auto) 12.9 L Clark % (Auto) 5.6 Eos % (Auto) 2.6 Baso % (Auto) 0.3 Neut # (Auto) 6.10 Lymph # (Auto) 1.00 Clark # (Auto) 0.40 Eos # (Auto) 0.20 Baso # (Auto) 0.02 INR 0.88 L APTT 27 Sodium 136 Potassium 4.0 Chloride 105 Carbon Dioxide 24 BUN 18 Creatinine 0.7 Estimated Creat Clear 49.45 Estimated GFR 92 Glucose 141 H Calcium 8.7 SARS-CoV-2 (PCR) Negative SARS-CoV-2 Diagnostic results Additional Comments: AP pelvis and AP and cross-table lateral views left hip from [facility] dated 03/13/2023 that were ordered by different provider reviewed by me. Left intertrochanteric femur fracture. Comminuted. There is shortening, varus angulation, and external rotation all noted of the distal fragment. Incidentally, spondylosis of the lumbar spine visualized from L3-S1 noted. CT scan of the cervical spine from [facility] dated 03/13/2023 ordered by different provider and reviewed by me shows overall relatively normal alignment. No acute fractures or avulsions or other acute pathology. Generalized cervical spondylosis with mild narrowing at C3-4 and C4-5 neural foramina and more moderate narrowing at C5-6 left-sided neural foramina. Assessment and Plan Assessment and plan (1) Closed hip fracture: Problem comment: Surgery for hip fracture at noon today. Ortho is aware. Bedrest. Keep NPO overnight and avoid pharmacologic prophylaxis for VTE until postop. Status: Acute Total time spent: Total time spent is greater than 50% in coordination of care (as documented) at patient's floor/unit and/or counseling patient: (2) Parkinson disease: Problem comment: Continue home medications. This will likely make rehab little more difficult. May need long term upon discharge. Status: Acute Total time spent: Total time spent is greater than 50% in coordination of care (as documented) at patient's floor/unit and/or counseling patient: (3) Osteopenia: Problem comment: With a hip fracture from standing height, she now has osteoporosis. May be considered for bisphosphonate as an outpatient. She already takes calcium as an outpatient, will also need vitamin-D. Status: Acute Total time spent: Total time spent is greater than 50% in coordination of care (as documented) at patient's floor/unit and/or counseling patient: (4) Essential hypertension: Problem comment: Continue home medications. She has had SVT in the past preumably that is why she is on both metoprolol and diltiazem. Status: Acute Total time spent: Total time spent is greater than 50% in coordination of care (as documented) at patient's floor/unit and/or counseling patient: (5) Environmental allergies: Problem comment: She takes Flovent scheduled and Albuterol prn for this. Her Flovent dose is not documented in her MAR from [facility] and they are not answering the phone there. Placed her on Flovent 220 for now. Status: Acute Total time spent: Total time spent is greater than 50% in coordination of care (as documented) at patient's floor/unit and/or counseling patient: (6) Osteoporosis: Status: Acute Plan I had a good discussion today with Lian and her sister, Zara (retired family physician). I help him understand her fracture pathology. I showed them pictures to help them better comprehend the comminution and the malposition. In my opinion, as Lian previously did ambulate with a walker for assistance, I do think surgery is indicated. This would be for a left femur fracture fixation with intramedullary nail. We discussed the risks, benefits, and alternatives in great detail. Help him understand the pros and cons of both nonoperative and operative interventions. After this conversation, indeed they elect to proceed with surgery. Consent was obtained in the operative left lower extremity was marked. We will plan for surgery yet today on 03/14/2023. Following the surgery, anticipate the patient will be able weight bear. 23 hours of perioperative antibiotics will be provided. Analgesia p.r.n.. Given her parkinsonism, I would anticipate this would likely delay her recovery/rehab. She will likely benefit from a stay at a rehab facility/nursing facility. In addition, given fall from a standing height resulting in a hip fracture/proximal femur fracture, osteoporosis is now diagnosed. She may benefit from medical management with bisphosphonates.
[2023-03-14] MEDS: CEFAZOLIN 1 GM in 0.9 % SODIUM CHLORIDE Mini-bag 100 ML IVPB ×2 (12:30→20:12)
--- NOTE | 2023-03-14 12:48 | P.NB_ITS ---
Nerve Block Nerve Block Time Seen by Provider: 12:18 Date Seen: 03/14/23 Type of block requested by surgeon for post-operative analgesia: EVERETTE/LFCN Side: left Time out performed: Yes (Led my Christine Griffiths RN) Verification of patient name: Yes Verification of date of : Yes Site marking: site marked Name of person performing procedure: Joao Salazar Continuous monitoring Was continuous monitoring of O2 sat, B/P, property assessment monitor, recorded every 15 minutes?: Yes Procedure Checklist: sterile prep, needles and gloves Ultrasound guided. Images saved: Yes Medications given in 5ml increments after negative aspiration: Ropivicaine %: 0.5 mL: 25 Needle gauge: 20 Decadron (mg): 10 Precedex (mcg): 25 Patient tolerated procedure well: Yes Additional comments: Injected in 5ml increments after negative aspiration. Block Charges Block Charge (with Pro Fee): Other Periph Nerve Block Use of Ultrasound Machine for Block: Yes- US Guidance/pain block
--- NOTE | 2023-03-14 13:48 | PM.ORPRC ---
Procedure Note Date of procedure: 03/14/23 Procedure: PREOPERATIVE DIAGNOSES: 1. Left femur intertrochanteric fracture, closed, acute POSTOPERATIVE DIAGNOSES: 1. Left femur intertrochanteric fracture, closed, acute NAME OF OPERATION: 1. Left femur intertrochanteric fracture fixation with intramedullary nail 2. 70968 - intraoperative fluoroscopy up to 1 hour. SURGEON: Jeremiah Boateng MD CLOTHES DESIGNER: Ketty Perry PA-C. Of note, an public health assistant was critical for this case to aide in patient positioning, extremity positioning, tissue retraction, instrument manipulation, and closure. ANESTHESIA: Spinal EBL: 100 ml IMPLANTS: Synthes long TFN 12 mm x 380 mm with 95 mm lag screw and 2 distal 5.0 mm interlocking screws] COMPLICATIONS: None evident INDICATIONS: The patient is a pleasant, 73-year-old female who unfortunately sustained a recent fall. They landed on their left hip and were unable to bear weight. They experienced significant pain which prompted a visit to [facility]. X-rays were obtained and revealed a proximal femur fracture on the left consistent with a pertrochanteric (i.e. intertrochanteric / subtrochanteric) femur fracture. Given these findings, along with the desire to help with pain control and improved mobility / mobilization, surgery was recommended. FINDINGS: Comminuted intertrochanteric left femur fracture with displacement, shortening, and varus angulation. PROCEDURE: Following a thorough discussion of risks, benefits, and alternatives, consent was obtained and the left hip was marked. After obtaining proper medical evaluation determining the patient was optimized prior to surgery, they were brought to the operating room and placed supine on the operating table. Induction of anesthesia undertaken. 1 g IV Ancef was administered within 1 hr of incision preoperatively. Proper time-out was performed identifying proper patient, site, and procedure. The operative extremity was prepped & draped in the appropriate sterile fashion using ChloraPrep after the patient was positioned on the [place] table with the head in neutral alignment all bone prominences well padded. C-arm fluoroscopic imaging was utilized to obtain AP and lateral views of the operative hip. This indeed confirm proper reduction of the proximal femur fracture. 10 blade skin incision was made proximal to the greater trochanteric tip. Sharp incision through skin and gluteal fascia allowed palpation of the greater trochanteric tip. A sharp awl was utilized and placed against the greater trochanteric tip. This was confirmed on C-arm and both in AP and lateral planes to be in appropriate starting position. Aiming down the canal. Once breaching the cortex, the ball-tip guidewire was passed the length of the femur. Once confirming via palpable scrape and visual C-Arm imagining that the guide wire with intraosseous, the depth gauge was used. The proper nail length was selected. The opening / proximal reamer was used followed by diaphyseal reamers up to 13.5mm. The IMN was then opened and inserted and passed the length of the canal without difficulty. The triple trocar was then applied to the lateral femur, 10 blade incision through the skin and ITB band along the trocars allowed them to be advanced to the lateral cortex. This was confirmed fluoroscopically to be in appropriate position. The guide pin was then placed and confirmed on AP and lateral views with the goal of center center position. The length was measured as noted above and the reamer used followed by screw application. Reduction of the fracture was monitored during insertion. The proximal nail locking screw was tightened down, and left static as the fracture pattern was felt to be unstable. At this stage, C-arm confirmed proper screw/lag screw position. We then turned our attention to the distal interlocking screws. Perfect [place] technique was utilized, and the 10 blade skin incision allowed the drill bit to be placed, and confirmed on C-arm fluoroscopic imaging to be within the oblong hole. This was measured and the screw placed with good security of the screw. A 2nd screw was placed in 1 of the other adjacent holes in a similar fashion. Again C-arm images were obtained to confirm position within the nail and the nail to be within the bone. At this stage, the wounds were thoroughly irrigated normal saline; closure was performed with #0 Vicryl for the deep gluteal fascia, and IT band. 2-0 Vicryl and 4-0 Monocryl was utilized for subcutaneous and subcuticular closure, respectively. The patient was awoken from anesthesia and transferred to the PACU in stable condition. PLAN: 1. Weight bear as tolerated operative lower extremity. 2. Encouraged ice. 3. Oxycodone for pain as needed. 4. Anticipate the need for care home facility transfer once medically stabilized 5. 23 hr perioperative antibiotics. 6. Xarelto for DVT prophylaxis along with Abraham ontiveros and SCDs.
--- NOTE | 2023-03-14 14:24 | W.ANESCHARGE ---
Anesthesia Charges Start Date/Time Anesthesia Start Date: 03/14/23 Anesthesia Start Time: 12:08 Stop Date/Time Anesthesia Stop Date: 03/14/23 Anesthesia Stop Time: 14:18
--- NOTE | 2023-03-14 14:33 | PC.NURSE ---
Pt received one dose of IV dilaudid this am for left hip pain. NPO, scheduled meds given with sip of water. Ice pack to left hip, voided twice using bedpan. Strict bedrest, repositioned to right side. 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 She spoke with Dr. Jo and anesthesia. Preop check list completed. Pt taken to OR via bed at 1210 for ORIF left hip. Dtr Lesvia Santiago from [place] updated via phone per myself at 1215 @ [phone]. Surgical case completed and Dr. Jo updated dtr Zara. Pt recently transferred to PACU per Ravi garcia RN.
--- NOTE | 2023-03-14 15:30 | RESP.RT ---
Patient return from surgery; arrived on Close face mask, changed to OxyMask at 4 Lpm by Nursing, SaO2 87%, increased to 6 Lpm, then 10 Lpm to keep SaO2 >90%, patient now 88-92% SaO2, needs encouragement to take deeper breaths. Bilateral Breath sounds with inspiratory fine crackles, patient is shallow breathing. Patient has Ventolin inhaler, needs to wake up little more before use. Goal to encourage patient to take deeper breaths, wean Oxygen as patient recovers from anesthesia.
[2023-03-14] MEDS: ALBUTEROL INHALER 2 PUFF IH (17:27)
[2023-03-14] MEDS: DULOXETINE 30 MG CAPSULE DR 60 MG PO (17:30)
--- NOTE | 2023-03-14 17:44 | P.IMPN_ITS ---
Progress Note: A&P Assessment and plan (1) Postoperative hypoxia: Problem details: She has been on IV fluids overnight and today. I suspect she actually has volume overload and will give her a dose of Lasix IV. Additionally I have ordered albuterol nebs. Status: Acute (2) Closed hip fracture: Problem details: Status post ORIF today. Status: Acute (3) Environmental allergies: Problem details: She takes Flovent scheduled and Albuterol prn for this. Her Flovent dose is not documented in her MAR from [facility] and they are not answering the phone there. Placed her on Flovent 220 for now. Status: Acute Subjective Time Seen by Provider: 17:45 Date Seen: 03/14/23 Interval history: Requiring 8-10L oxymask post op. Lian notes a noise in her throat that doesn't clear. Exam Narrative: Exam Narrative: General: No acute distress. Awake, alert, oriented. Cardiovascular: Regular rate and rhythm. No murmurs, gallops, or rubs. Respiratory: Some expiratory wheezes throughout. No crackles. Poor inspiratory effort. Const: Vital Signs, click to edit/add: Vital Signs - 24 hr 03/13/23 21:41 03/13/23 22:48 03/14/23 00:01 Temperature 97.7 F 97.7 F Pulse Rate Pulse Rate [Left A pical] Pulse Rate [Pulse Oximeter] 68 73 Respiratory Rate 18 18 Blood Pressure Blood Pressure [Le ft Arm] 183/65 H 156/76 H Pulse Oximetry 94 93 93 Oxygen Delivery Me thod Nasal Cannula Nasal Cannula Oxygen Flow Rate 2.0 2.0 03/14/23 03:09 03/14/23 07:35 03/14/23 07:35 Temperature 98.1 F 97.5 F L Pulse Rate Pulse Rate [Left A pical] 85 Pulse Rate [Pulse Oximeter] 85 Respiratory Rate 22 18 Blood Pressure Blood Pressure [Le ft Arm] 121/76 132/69 Pulse Oximetry 92 93 95 Oxygen Delivery Me thod Nasal Cannula Nasal Cannula Nasal Cannula Oxygen Flow Rate 2.0 2 03/14/23 11:40 03/14/23 14:15 03/14/23 14:20 Temperature 98.3 F 98.6 F Pulse Rate 80 84 Pulse Rate [Left A pical] 89 Pulse Rate [Pulse Oximeter] 89 Respiratory Rate 18 16 14 Blood Pressure 126/54 L 153/84 H Blood Pressure [Le ft Arm] 157/65 H Pulse Oximetry 94 98 85 L Oxygen Delivery Me thod Nasal Cannula Nasal Cannula OxyMask Oxygen Flow Rate 2 2 7 03/14/23 14:25 03/14/23 14:30 03/14/23 14:35 Temperature Pulse Rate 83 82 75 Pulse Rate [Left A pical] Pulse Rate [Pulse Oximeter] Respiratory Rate 17 16 17 Blood Pressure 154/72 H 151/73 H 142/67 H Blood Pressure [Le ft Arm] Pulse Oximetry 93 94 95 Oxygen Delivery Me thod OxyMask OxyMask OxyMask Oxygen Flow Rate 7 7 5 03/14/23 14:40 03/14/23 14:45 03/14/23 15:04 Temperature 98.8 F 96.8 F L Pulse Rate 72 78 78 Pulse Rate [Left A pical] Pulse Rate [Pulse Oximeter] Respiratory Rate 14 15 14 Blood Pressure 153/58 H 143/64 H Blood Pressure [Le ft Arm] 162/68 H Pulse Oximetry 95 95 Oxygen Delivery Me thod OxyMask OxyMask OxyMask Oxygen Flow Rate 3 4 4 03/14/23 15:15 03/14/23 15:00 03/14/23 15:28 Temperature 96.8 F L Pulse Rate Pulse Rate [Left A pical] Pulse Rate [Pulse Oximeter] 77 78 Respiratory Rate 12 12 12 Blood Pressure Blood Pressure [Le ft Arm] 145/63 H 162/68 H Pulse Oximetry 92 88 90 Oxygen Delivery Me thod OxyMask OxyMask OxyMask Oxygen Flow Rate 10 6 10 03/14/23 15:30 03/14/23 15:29 03/14/23 15:00 Temperature Pulse Rate Pulse Rate [Left A pical] Pulse Rate [Pulse Oximeter] 78 Respiratory Rate 22 18 Blood Pressure Blood Pressure [Le ft Arm] 162/68 H Pulse Oximetry 90 91 Oxygen Delivery Me thod OxyMask OxyMask Oxygen Flow Rate 10 10 03/14/23 15:30 03/14/23 15:45 03/14/23 16:00 Temperature 97.6 F Pulse Rate Pulse Rate [Left A pical] Pulse Rate [Pulse Oximeter] 80 74 74 Respiratory Rate 16 16 16 Blood Pressure Blood Pressure [Le ft Arm] 143/64 H 144/71 H 149/69 H Pulse Oximetry 92 90 90 Oxygen Delivery Me thod OxyMask OxyMask OxyMask Oxygen Flow Rate 10 10 10 03/14/23 16:30 03/14/23 17:02 Temperature Pulse Rate Pulse Rate [Left A pical] Pulse Rate [Pulse Oximeter] 82 80 Respiratory Rate 16 16 Blood Pressure Blood Pressure [Le ft Arm] 161/73 H 143/62 H Pulse Oximetry 90 90 Oxygen Delivery Me thod OxyMask OxyMask Oxygen Flow Rate 10 8 Labs Labs: Laboratory Results - last 24 hr 03/13/23 03/13/23 17:24 17:30 INR 0.88 L APTT 27 Sodium 136 Potassium 4.0 Chloride 105 Carbon Dioxide 24 BUN 18 Creatinine 0.7 Estimated Creat Clear 49.45 Estimated GFR 92 Glucose 141 H Calcium 8.7 SARS-CoV-2 (PCR) Negative SARS-CoV-2
[2023-03-14] MEDS: FUROSEMIDE 10 MG/ML inj 20 MG IVP (18:04)
[2023-03-14] MEDS: OXYCODONE 5 MG TABLET PO ×2 (20:13→22:00)
[2023-03-14] MEDS: SENNOSIDES 1 TAB TABLET 2 TAB PO (21:10)
--- NOTE | 2023-03-14 22:45 | PC.NURSE ---
Shift 8660-8232- Patient is drowsy, requires oxymask at 10L for several hours. She is able to be weaned down to 7L O2 via oxymask, but tonight needs 9LO2 to remain >90%. She uses bedpan as attempts to sit at edge of bed are unsuccessful. She is a little confused/forgetful throughout, saying non-sensical things that are hard to follow, but otherwise able to make her needs known. Unable to follow directions for incentive spirometer. She tolerated regular diet, ice pack applied, bandages are clean, dry and intact.
[2023-03-15] VITALS (7 sets, daily range): BP systolic 118–152; BP diastolic 46–64; PULSE 76–98; RESP 18–20; TEMP 35–36.6; O2SAT 90–94
[2023-03-15] MEDS: OXYCODONE 5 MG TABLET PO ×5 (03:30→23:36)
[2023-03-15] MEDS: CEFAZOLIN 1 GM in 0.9 % SODIUM CHLORIDE Mini-bag 100 ML IVPB ×2 (03:30→12:03)
[2023-03-15] MEDS: LEVOTHYROXINE 75 MCG TABLET PO (06:11)
[2023-03-15] MEDS: LEVOTHYROXINE 100 MCG TABLET PO (06:11)
--- NOTE | 2023-03-15 06:39 | PC.NURSE ---
Shift note: Surgical dressing is C/D/I, surrounding skin is intact and pink. Bedpan in bed, afebrile. Pt is slightly confused, but pleasant and easily reoriented.
[2023-03-15 07:01] LABS: Hematocrit 36.1 % (33.0-51.0); Hemoglobin* 12.1 gm/dL (12.0-16.0); Mean Corpuscular HGB Conc 34 gm/dL (32-36); Mean Corpuscular Hemoglobin 30 pg (26-34); Mean Corpuscular Volume 90 fL (80-100); Platelet Count* 268 K/uL (140-440); Red Blood Count 4.01 m/uL (4.00-5.20); White Blood Count* 13.08 K/uL (4.50-11.00)
[2023-03-15 07:14] LABS: Slide Review Reflex No
[2023-03-15 07:24] LABS: Sodium* 134 mmol/L (135-149)
[2023-03-15 07:27] LABS: Blood Urea Nitrogen* 14 mg/dL (7-30); Creatinine* 0.6 mg/dL (0.5-1.5); Est. Creatinine Clearance* 43.91; Estimated Glomerular Filt Rate 95 ml/min
[2023-03-15] MEDS: dilTIAZem 120 MG CAP.ER.24H 240 MG PO (07:53)
[2023-03-15] MEDS: SIMVASTATIN 10 MG TABLET PO (07:53)
[2023-03-15] MEDS: SENNOSIDES 1 TAB TABLET 2 TAB PO ×2 (07:53→20:25)
[2023-03-15] MEDS: RIVAROXABAN 10 MG TABLET PO (07:54)
[2023-03-15] MEDS: FUROSEMIDE 20 MG TABLET 10 MG PO (07:54)
[2023-03-15] MEDS: CETIRIZINE HCL 10 MG TABLET 5 MG PO ×2 (07:55→20:25)
[2023-03-15] MEDS: CARBIDOPA-LEVODOPA 25-100 TABLET 1.5 TAB PO ×3 (07:56→20:26)
[2023-03-15] MEDS: SODIUM CHLORIDE 0.9 % (FLUSH) 10 ML SYRINGE 5 ML IVF ×2 (07:57→14:52)
[2023-03-15] MEDS: METOPROLOL SUCCINATE (XL) 50 MG TAB PO (07:58)
--- NOTE | 2023-03-15 08:05 | PM.ORPN ---
Subjective Subjective Time Seen by Provider: 07:50 Date Seen: 03/15/23 Principal diagnosis: Day 1 s/p left femur intertrochanteric fracture fixation with IM nail Interval history: Lian is resting in her bed eating breakfast this morning. She appears confused and somewhat [id number]. No family present at this time. Lian complains of bilateral lower extremity pain, especially the left. She reports she slept poorly and woke up every 4 hours. Denies chest pain, SOB, fever, chills, numbness/tingling distally. Denies bowel movement since surgery and denies gas. Overnight, Lian required 9L of O2 and had shallowed breathing. This has improved this morning. Ortho Exam Narrative Exam Narrative: Incision/Dressing: Dressing appears clean and dry. No drainage present. Mepilex intact x3. Left hip appears moderately swollen but supple with no obvious erythema, fluctuance or excessive warmth. Ecchymosis present surrounding proximal Mepilex dressing. Warmth around the wound is appropriate. Ice is being utilized as needed. CMS: Intact distally with 2+ Dorsalis pedis and Posterior Tibial pulses. 5/5 motor strength dorsal and plantar flexion. Confirmed sensation distally. Unable to preform straight leg raise. Calf: Bilateral calves are supple, with no swelling, pain, tenderness, erythema, discoloration or coolness to the touch. Constitutional: Patient is confused, but alert to person and place. Patient is in no acute distress and converses without labored breathing. No swallow breathing present. Patient is pleasant and cooperative. Const Vital Signs, click to edit/add: Vital Signs - 24 hr 03/14/23 11:40 03/14/23 14:15 03/14/23 14:20 Temperature 98.3 F 98.6 F Pulse Rate 80 84 Pulse Rate [Left Apical] 89 Pulse Rate [Pulse Oximeter] 89 Respiratory Rate 18 16 14 Blood Pressure 126/54 L 153/84 H Blood Pressure [Left Arm] 157/65 H Pulse Oximetry 94 98 85 L Oxygen Delivery Method Nasal Cannula Nasal Cannula OxyMask Oxygen Flow Rate 2 2 7 03/14/23 14:25 03/14/23 14:30 03/14/23 14:35 Temperature Pulse Rate 83 82 75 Pulse Rate [Left Apical] Pulse Rate [Pulse Oximeter] Respiratory Rate 17 16 17 Blood Pressure 154/72 H 151/73 H 142/67 H Blood Pressure [Left Arm] Pulse Oximetry 93 94 95 Oxygen Delivery Method OxyMask OxyMask OxyMask Oxygen Flow Rate 7 7 5 03/14/23 14:40 03/14/23 14:45 03/14/23 15:04 Temperature 98.8 F 96.8 F L Pulse Rate 72 78 78 Pulse Rate [Left Apical] Pulse Rate [Pulse Oximeter] Respiratory Rate 14 15 14 Blood Pressure 153/58 H 143/64 H Blood Pressure [Left Arm] 162/68 H Pulse Oximetry 95 95 Oxygen Delivery Method OxyMask OxyMask OxyMask Oxygen Flow Rate 3 4 4 03/14/23 15:15 03/14/23 15:00 03/14/23 15:28 Temperature 96.8 F L Pulse Rate Pulse Rate [Left Apical] Pulse Rate [Pulse Oximeter] 77 78 Respiratory Rate 12 12 12 Blood Pressure Blood Pressure [Left Arm] 145/63 H 162/68 H Pulse Oximetry 92 88 90 Oxygen Delivery Method OxyMask OxyMask OxyMask Oxygen Flow Rate 10 6 10 03/14/23 15:30 03/14/23 15:29 03/14/23 15:00 Temperature Pulse Rate Pulse Rate [Left Apical] Pulse Rate [Pulse Oximeter] 78 Respiratory Rate 22 18 Blood Pressure Blood Pressure [Left Arm] 162/68 H Pulse Oximetry 90 91 Oxygen Delivery Method OxyMask OxyMask Oxygen Flow Rate 10 10 03/14/23 15:30 03/14/23 15:45 03/14/23 16:00 Temperature 97.6 F Pulse Rate Pulse Rate [Left Apical] Pulse Rate [Pulse Oximeter] 80 74 74 Respiratory Rate 16 16 16 Blood Pressure Blood Pressure [Left Arm] 143/64 H 144/71 H 149/69 H Pulse Oximetry 92 90 90 Oxygen Delivery Method OxyMask OxyMask OxyMask Oxygen Flow Rate 10 10 10 03/14/23 16:30 03/14/23 17:02 03/14/23 18:00 Temperature Pulse Rate Pulse Rate [Left Apical] Pulse Rate [Pulse Oximeter] 82 80 84 Respiratory Rate 16 16 16 Blood Pressure Blood Pressure [Left Arm] 161/73 H 143/62 H 151/68 H Pulse Oximetry 90 90 94 Oxygen Delivery Method OxyMask OxyMask OxyMask Oxygen Flow Rate 10 8 8 03/14/23 19:00 03/14/23 21:00 03/14/23 23:00 Temperature Pulse Rate Pulse Rate [Left Apical] Pulse Rate [Pulse Oximeter] 89 89 91 Respiratory Rate 16 16 22 Blood Pressure Blood Pressure [Left Arm] 158/70 H 172/78 H Pulse Oximetry 92 93 Oxygen Delivery Method OxyMask OxyMask Oxygen Flow Rate 7 9 03/14/23 23:00 03/14/23 23:00 03/14/23 23:24 Temperature 98 F Pulse Rate Pulse Rate [Left Apical] Pulse Rate [Pulse Oximeter] 91 Respiratory Rate 20 Blood Pressure Blood Pressure [Left Arm] 153/59 H Pulse Oximetry 94 94 91 Oxygen Delivery Method OxyMask OxyMask Oxygen Flow Rate 9 9 03/15/23 03:00 Temperature 98 F Pulse Rate Pulse Rate [Left Apical] Pulse Rate [Pulse Oximeter] 84 Respiratory Rate 18 Blood Pressure Blood Pressure [Left Arm] 152/62 H Pulse Oximetry 92 Oxygen Delivery Method OxyMask Oxygen Flow Rate 9 Assessment and Plan Assessment and plan (1) Postoperative hypoxia: Status: Acute (2) Closed hip fracture: Problem details: Day 1 s/p left femur intertrochanteric fracture fixation with IM nail Status: Acute Assessment and Plan: - Complete 23 hour perioperative antibiotics. - PT/OT consults for education and assistance. - Social consult for discharge planning. Patient will likely require SNF placement. - Weight bear as tolerated. - DVT prophylaxis includes: Xarelto and bilateral knee high Abraham stockings x 1 month. Frequent ambulation and ankle pumps when sedentary. - Anticipate patient will be discharged to a SNF once the patient remains medically stable, pain is controlled and is safe with ambulation. - Mepilex dressings will be removed at SNF in 7-10 days. Nursing staff there will perform a wound check and notify our clinic with any concerns. Dressing is waterproof. May shower. Remove dressing if becomes saturated. - Return to clinic in [address] Boateng. - Prescribed analgesics as needed. Patient is content with current narcotic medications. Minimize narcotic pain medication use; wean off and discontinue as soon as possible. - Phone Orthopedics with any questions or concerns. (3) Environmental allergies: Status: Acute
--- NOTE | 2023-03-15 12:19 | CRLHL7_ITS ---
For Patients: As a result of the Century Cures Act, medical imaging exams and procedure reports are released immediately into your electronic medical record. You may view this report before your referring provider. If you have questions, please contact your health care provider. INDICATION: Hypoxia. TECHNIQUE: CT chest PE was acquired with 95 cc Isovue 370 IV contrast. COMPARISON: Chest x-ray 03/13/2023. FINDINGS: Heart and vasculature: Contrast opacification of the pulmonary arterial tree is adequate. No sign of pulmonary embolism. Heart size is normal. Thoracic aorta and pulmonary artery are normal in caliber. There is mild atherosclerosis of the thoracic aorta. No CT scan evidence of right heart strain. Lungs and pleura: Scattered interstitial thickening and patchy lung opacities, nonspecific. Right lower lobe atelectasis/consolidation, suspicious for pneumonia. Follow-up CT scan of the chest is recommended in 3 months to confirm resolution. No pleural effusions, pleural thickening, or pneumothorax. Lymph nodes/mediastinum: Increased density material throughout the esophagus, likely food. Esophageal lesion cannot be excluded. Chest wall: No masses. Upper abdomen: No acute or significant findings. Bones: Unremarkable for age. IMPRESSION: 1. No pulmonary arterial embolism. 2. Scattered interstitial thickening and patchy lung opacities, nonspecific. Follow-up CT scan of the chest in 3 months is recommended. 3. Right lower lobe atelectasis/consolidation, suspicious for pneumonia. Follow-up CT scan of the chest in 3 months is recommended. 4. Increased density material throughout the esophagus, likely food. An esophageal lesion cannot be excluded. Please note that all CT scans at this facility use dose modulation, iterative reconstruction, and/or weight-based dosing when appropriate to reduce radiation dose to as low as reasonably achievable. Dictated by Nico Sanderson MD @ 03/15/2023 2:07:02 PM (Electronically Signed)
--- NOTE | 2023-03-15 13:36 | PC.NURSE ---
Addendum entered by Shantelle Rebolledo RN 03/15/23 14:31: Have update Dr. Santamaria that the CT results are posted. He wanted me to try a albuterol neb. I have also been talking with Bjorn WILLIAM about patient and how poorly she does the IS. He is going to instructor her on the aerobika and need to really enc every time we go into her room to use this and cough and deep breath. O2 sats occassionally go to 93% but don't stay up for very long. Lung sound are clear. Original Note: End of Shift Note: Patient has had a productive day. She was able to get up to the recliner for her lunch meal. Has received oxy x2 for her pain. Unsure of her mentation if this is her normal of if the pain as sometimes she answers appropriately and then she is a little confused. Have tried educate her on using the incentive spirometer as her oxygen sats have been as low as 72% if I remove the oxygen from her nose. she does poorly using the incentive spirometer. Have changed her to the forehead probe as don't think with the tremor that it was reading accurately. Will continue to monitor.
[2023-03-15] MEDS: ALBUTEROL SULFATE 2.5 MG/3 ML VIAL.NEB NEB ×2 (14:16→18:33)
--- NOTE | 2023-03-15 14:20 | PC.SOCIAL ---
Met with pt. to discuss discharge plans. Pt. is from [facility] and broke her hip. Pt. wants to remain on campus so a referral was made to [facility]. They can accept pt. tomorrow and the [facility] van will warehouse shipping supervisor pt. at 10:30am. Left a message with pt.'s sister Lesvia at [phone].
[2023-03-15] MEDS: AZITHROMYCIN 250 MG TABLET 500 MG PO (14:51)
[2023-03-15] MEDS: cefTRIAXone 1 GM in 0.9 % SODIUM CHLORIDE Mini-bag 100 ML IVPB (14:51)
--- NOTE | 2023-03-15 14:55 | P.IMPN_ITS ---
Progress Note: A&P Assessment and plan (1) Pneumonia: Problem details: Diagnosed on 03/15 with RLL infiltrate and interstitial infiltrates. She was started on Ceftriaxone and Zithromax. Will continue both for at least 3 days. She needs an oupatient CT scan in 3 months to follow up on this. Status: Acute (2) Closed hip fracture: Problem details: Day 1 s/p left femur intertrochanteric fracture fixation with IM nail Status: Acute (3) Postoperative hypoxia: Problem details: Likely due to Pneumonia. Status: Acute (4) Osteopenia: Problem details: With a hip fracture from standing height, she now has osteoporosis. May be considered for bisphosphonate as an outpatient. She already takes calcium as an outpatient, will also need vitamin-D. Status: Acute (5) Parkinson disease: Problem details: Continue home medications. This will likely make rehab little more difficult. May need [facility] upon discharge. Status: Acute (6) Essential hypertension: Problem details: Continue home medications. She has had SVT in the past preumably that is why she is on both metoprolol and diltiazem. Status: Acute Subjective Time Seen by Provider: 14:55 Date Seen: 03/15/23 Interval history: Subjective: Lian was admitted with a hip fracture on March 13. She has been hypoxic and required oxygen throughout her stay. She was diuresed yesterday evening and her hypoxia did not improve with that. She otherwise feels well and is making progress with physical therapy. She does occasionally cough. No chest pain or shortness of breath. No fevers. Exam Const: Vital Signs, click to edit/add: Vital Signs - 24 hr 03/14/23 15:04 03/14/23 15:15 03/14/23 15:00 Temperature 96.8 F L 96.8 F L Pulse Rate 78 Pulse Rate [Left A pical] Pulse Rate [Pulse Oximeter] 77 78 Respiratory Rate 14 12 12 Blood Pressure [Le ft Arm] 162/68 H 145/63 H 162/68 H Pulse Oximetry 92 88 Oxygen Delivery Me thod OxyMask OxyMask OxyMask Oxygen Flow Rate 4 10 6 03/14/23 15:28 03/14/23 15:30 03/14/23 15:29 Temperature Pulse Rate Pulse Rate [Left A pical] Pulse Rate [Pulse Oximeter] Respiratory Rate 12 22 Blood Pressure [Le ft Arm] Pulse Oximetry 90 90 91 Oxygen Delivery Me thod OxyMask OxyMask Oxygen Flow Rate 10 10 03/14/23 15:00 03/14/23 15:30 03/14/23 15:45 Temperature 97.6 F Pulse Rate Pulse Rate [Left A pical] Pulse Rate [Pulse Oximeter] 78 80 74 Respiratory Rate 18 16 16 Blood Pressure [Le ft Arm] 162/68 H 143/64 H 144/71 H Pulse Oximetry 92 90 Oxygen Delivery Me thod OxyMask OxyMask OxyMask Oxygen Flow Rate 10 10 10 03/14/23 16:00 03/14/23 16:30 03/14/23 17:02 Temperature Pulse Rate Pulse Rate [Left A pical] Pulse Rate [Pulse Oximeter] 74 82 80 Respiratory Rate 16 16 16 Blood Pressure [Le ft Arm] 149/69 H 161/73 H 143/62 H Pulse Oximetry 90 90 90 Oxygen Delivery Me thod OxyMask OxyMask OxyMask Oxygen Flow Rate 10 10 8 03/14/23 18:00 03/14/23 19:00 03/14/23 21:00 Temperature Pulse Rate Pulse Rate [Left A pical] Pulse Rate [Pulse Oximeter] 84 89 89 Respiratory Rate 16 16 16 Blood Pressure [Le ft Arm] 151/68 H 158/70 H 172/78 H Pulse Oximetry 94 92 93 Oxygen Delivery Me thod OxyMask OxyMask OxyMask Oxygen Flow Rate 8 7 9 03/14/23 23:00 03/14/23 23:00 03/14/23 23:00 Temperature 98 F Pulse Rate Pulse Rate [Left A pical] Pulse Rate [Pulse Oximeter] 91 91 Respiratory Rate 22 20 Blood Pressure [Le ft Arm] 153/59 H Pulse Oximetry 94 94 Oxygen Delivery Me thod OxyMask OxyMask Oxygen Flow Rate 9 9 03/14/23 23:24 03/15/23 03:00 03/15/23 07:00 Temperature 98 F 97.6 F Pulse Rate Pulse Rate [Left A pical] 98 Pulse Rate [Pulse Oximeter] 84 Respiratory Rate 18 20 Blood Pressure [Le ft Arm] 152/62 H 139/62 Pulse Oximetry 91 92 91 Oxygen Delivery Me thod OxyMask Nasal Cannula Oxygen Flow Rate 9 3 03/15/23 07:00 03/15/23 07:00 03/15/23 07:00 Temperature Pulse Rate Pulse Rate [Left A pical] 98 Pulse Rate [Pulse Oximeter] Respiratory Rate 20 Blood Pressure [Le ft Arm] Pulse Oximetry 91 91 Oxygen Delivery Me thod Nasal Cannula Oxygen Flow Rate 3 03/15/23 11:00 Temperature Pulse Rate Pulse Rate [Left A pical] 76 Pulse Rate [Pulse Oximeter] Respiratory Rate 20 Blood Pressure [Le ft Arm] Pulse Oximetry 94 Oxygen Delivery Me thod Nasal Cannula Oxygen Flow Rate 3.5 Alert and oriented female in no distress. She is receiving oxygen via nasal cannula 3 to 3.5 liters/minute. HEENT is within normal limits. Cardiovascular regular rate and rhythm without murmur gallop or rub. Lungs have some decreased breath sounds at the bases but otherwise are clear to auscultation without rales or wheezes. Abdomen positive bowel sounds soft and nontender. Extremities no pitting edema. Labs Labs: Laboratory Results - last 24 hr 03/15/23 06:39 WBC 13.08 H RBC 4.01 Hgb 12.1 Hct 36.1 MCV 90 MCH 30 MCHC 34 Plt Count 268 Sodium 134 L Potassium 4.0 BUN 14 Creatinine 0.6 Estimated Creat Clear 43.91 Estimated GFR [address] scan - chest: Radiologist's impression: INDICATION: Hypoxia. TECHNIQUE: CT chest PE was acquired with 95 cc Isovue 370 IV contrast. COMPARISON: Chest x-ray 03/13/2023. FINDINGS: Heart and vasculature: Contrast opacification of the pulmonary arterial tree is adequate. No sign of pulmonary embolism. Heart size is normal. Thoracic aorta and pulmonary artery are normal in caliber. There is mild atherosclerosis of the thoracic aorta. No CT scan evidence of right heart strain. Lungs and pleura: Scattered interstitial thickening and patchy lung opacities, nonspecific. Right lower lobe atelectasis/consolidation, suspicious for pneumonia. Follow-up CT scan of the chest is recommended in 3 months to confirm resolution.? No pleural effusions, pleural thickening, or pneumothorax. Lymph nodes/mediastinum: Increased density material throughout the esophagus, likely food. Esophageal lesion cannot be excluded. Chest wall: No masses. Upper abdomen: No acute or significant findings. Bones: Unremarkable for age. IMPRESSION: 1. No pulmonary arterial embolism. 2. Scattered interstitial thickening and patchy lung opacities, nonspecific. Follow-up CT scan of the chest in 3 months is recommended. 3. Right lower lobe atelectasis/consolidation, suspicious for pneumonia. Follow-up CT scan of the chest in 3 months is recommended. 4. Increased density material throughout the esophagus, likely food. An esophageal lesion cannot be excluded. Please note that all CT scans at this facility use dose modulation, iterative reconstruction, and/or weight-based dosing when appropriate to reduce radiation dose to as low as reasonably achievable. Dictated by Nico Sanderson MD @ 03/15/2023 2:07:02 PM (Electronically Signed)
[2023-03-15] MEDS: DULOXETINE 30 MG CAPSULE DR 60 MG PO (17:59)
[2023-03-15] MEDS: MELATONIN 3 MG TABLET PO (20:27)
--- NOTE | 2023-03-15 22:55 | PC.NURSE ---
Shift [id number]- Patient confused/forgetful this evening. For instance, requesting items from her rolltop desk. Not oriented to place or situation. She removes IV's tonight. She also takes off O2 monitor and nasal cannula at times. She is on 4L O2, though saturations are mid-high 80s to low 90s%. Aggressive pulmonary toileting prompts per RN during each interaction. MD updated- no new orders. She is able to communicate if she is in pain- oxycodone given with seeming relief. Ice pace applied. She is turned and repositioned with pillows for offloading. She is up to chair for supper and ambulates to bathroom with assist of 1, walker and gait belt. Update given to sister Audrey. She requests to be called with discharge changes. [facility] also given RN to RN- they request to call Savanah in [facility] recs ([phone]) in the AM before transfer if patient is still requiring oxygen, so they can set up for that.
[2023-03-16] VITALS (8 sets, daily range): BP systolic 101–155; BP diastolic 49–82; PULSE 77–88; RESP 16–22; TEMP 36.1–36.6; O2SAT 90–96
--- NOTE | 2023-03-16 05:54 | PC.NURSE ---
shift note 23-: Pt confused, easily reoriented. PRN Oxycodone given for pain with pt reporting relief. Pt initially on 4L O2 PNC, weaned to 3L with O2 sats in the low 90's. Pt denies SOB, CP, and N/V. Up 1 assist gait belt and walker. Dressing C/D/I. Pt encouraged to C&DB.
[2023-03-16] MEDS: LEVOTHYROXINE 100 MCG TABLET PO (06:28)
[2023-03-16] MEDS: LEVOTHYROXINE 75 MCG TABLET PO (06:28)
[2023-03-16] MEDS: OXYCODONE 5 MG TABLET PO ×5 (06:32→22:22)
[2023-03-16] MEDS: CARBIDOPA-LEVODOPA 25-100 TABLET 1.5 TAB PO ×3 (08:04→21:00)
[2023-03-16] MEDS: CETIRIZINE HCL 10 MG TABLET 5 MG PO ×2 (09:08→21:01)
[2023-03-16] MEDS: FUROSEMIDE 20 MG TABLET 10 MG PO (09:09)
[2023-03-16] MEDS: RIVAROXABAN 10 MG TABLET PO (09:09)
[2023-03-16] MEDS: SENNOSIDES 1 TAB TABLET 2 TAB PO (09:10)
[2023-03-16] MEDS: SIMVASTATIN 10 MG TABLET PO (09:10)
[2023-03-16] MEDS: dilTIAZem 120 MG CAP.ER.24H 240 MG PO (09:10)
[2023-03-16] MEDS: METOPROLOL SUCCINATE (XL) 50 MG TAB PO (09:11)
--- NOTE | 2023-03-16 09:41 | P.ORPN_ITS ---
Subjective Subjective Time Seen by Provider: 09:41 Date Seen: 03/16/23 Principal diagnosis: s/p left femur intertrochanteric fracture fixation with IM nail Interval history: Lian is moving well this morning. In a walker ambulating to and from the bathroom and to a recliner. She denies numbness or tingling in her left lower extremity. Ortho Exam Narrative Exam Narrative: Patient is in no acute distress. Converses without labored breathing. Nasal cannula is in place. Hearing is grossly intact. Ambulates well with a walker. Examination of the left lower extremity shows mild soft tissue edema about the left hip. Dressings are intact. There is no erythema or warmth or sign of infection. No drainage. CMS is intact left lower extremity is able to straight leg raise in the seated position and throughout her gait. Const Vital Signs, click to edit/add: Vital Signs - 24 hr 03/15/23 11:00 03/15/23 15:40 03/15/23 15:40 Temperature 97.6 F Pulse Rate [Left Apical] 76 Pulse Rate [Pulse Oximeter] 87 Respiratory Rate 20 20 Blood Pressure [Left Arm] 122/46 L Pulse Oximetry 94 90 90 Oxygen Delivery Method Nasal Cannula Nasal Cannula Nasal Cannula Oxygen Flow Rate 3.5 3.5 3.5 03/15/23 16:01 03/15/23 19:00 03/15/23 23:00 Temperature 95 F L Pulse Rate [Left Apical] 87 Pulse Rate [Pulse Oximeter] Respiratory Rate 20 20 Blood Pressure [Left Arm] 150/64 H Pulse Oximetry 90 90 Oxygen Delivery Method Nasal Cannula Oxygen Flow Rate 4 03/15/23 23:00 03/15/23 23:00 03/16/23 00:00 Temperature 97.5 F L Pulse Rate [Left Apical] 82 Pulse Rate [Pulse Oximeter] Respiratory Rate 18 18 Blood Pressure [Left Arm] 118/53 L Pulse Oximetry 91 91 90 Oxygen Delivery Method Nasal Cannula Nasal Cannula Oxygen Flow Rate 4 4 03/16/23 03:00 Temperature 97.9 F Pulse Rate [Left Apical] 78 Pulse Rate [Pulse Oximeter] Respiratory Rate 16 Blood Pressure [Left Arm] 134/60 Pulse Oximetry 96 Oxygen Delivery Method Nasal Cannula Oxygen Flow Rate 4 Documenting provider has reviewed patient's vital signs: yes Assessment and Plan Assessment and plan (1) Pneumonia: Problem details: Diagnosed on 03/15 with RLL infiltrate and interstitial infiltrates. She was started on Ceftriaxone and Zithromax. Will continue both for at least 3 days. She needs an oupatient CT scan in 3 months to follow up on this. Status: Acute (2) Closed hip fracture: Problem details: s/p left femur intertrochanteric fracture fixation with IM nail Status: Acute (3) Postoperative hypoxia: Problem details: Likely due to Pneumonia. Status: Acute (4) Osteopenia: Problem details: With a hip fracture from standing height, she now has osteoporosis. May be considered for bisphosphonate as an outpatient. She already takes calcium as an outpatient, will also need vitamin-D. Status: Acute (5) Parkinson disease: Problem details: Continue home medications. This will likely make rehab little more difficult. May need group home upon discharge. Status: Acute (6) Essential hypertension: Problem details: Continue home medications. She has had SVT in the past preumably that is why she is on both metoprolol and diltiazem. Status: Acute Plan Plan for discharge is to group home facility when she meets discharge crilake kapoor. Orthopedics is signing off, as it sounds she is staying for at least another day due to hypoxia. Lian is ambulating very well with a walker. DVT prophylaxis includes Xarelto 10 mg daily for total 30 days, Abraham stockings x1 month may remove for several hours per day., frequent ambulation Remove dressing 1 week. Observe wound and phone Orthopedics with any questions or concerns Use Ice on operative hip unrestricted. Ketty has completed orthopedic discharge medications. Return to clinic in [address] Boateng Minimize narcotic use. Wean off and discontinue soon as possible. Weight-bearing as tolerated left lower extremity. Attend OT and PT at group home facility daily.
--- NOTE | 2023-03-16 12:12 | PM.IMPN1 ---
Progress Note: A&P Assessment and plan (1) Pneumonia: Problem details: Diagnosed on 03/15 with RLL infiltrate and interstitial infiltrates. She was started on Ceftriaxone and Zithromax. Will continue both for at least 3 days. She needs an oupatient CT scan in 3 months to follow up on this. She is still hypoxic today on room air. If she continues to improve will send her to a intermediate facility tomorrow with her without oxygen depending on her oxygen needs. Status: Acute (2) Postoperative hypoxia: Problem details: Likely due to Pneumonia. Status: Acute (3) Closed hip fracture: Problem details: s/p left femur intertrochanteric fracture fixation with IM nail Status: Acute (4) Parkinson disease: Problem details: Continue home medications. This will likely make rehab little more difficult. Will need intermediate upon discharge. Status: Acute (5) Essential hypertension: Problem details: Continue home medications. She has had SVT in the past preumably that is why she is on both metoprolol and diltiazem. Status: Acute Time Spent With Patient Total time spent: 40 minutes over half the time was spent counseling and coordinating care. Subjective Time Seen by Provider: 12:12 Date Seen: 03/16/23 Interval history: Lian overall is doing okay. She continues to be hypoxic and requiring oxygen for her postop pneumonia. She is eating reasonably well. She is doing reasonably well with physical therapy. She is faithfully doing her pulmonary exercises Exam Const: Vital Signs, click to edit/add: Vital Signs - 24 hr 03/15/23 15:40 03/15/23 15:40 03/15/23 16:01 Temperature 97.6 F Pulse Rate [Left A pical] Pulse Rate [Pulse Oximeter] 87 Respiratory Rate 20 Blood Pressure [Le ft Arm] 122/46 L Pulse Oximetry 90 90 90 Oxygen Delivery Me thod Nasal Cannula Nasal Cannula Oxygen Flow Rate 3.5 3.5 03/15/23 19:00 03/15/23 23:00 03/15/23 23:00 Temperature 95 F L Pulse Rate [Left A pical] 87 Pulse Rate [Pulse Oximeter] Respiratory Rate 20 20 18 Blood Pressure [Le ft Arm] 150/64 H Pulse Oximetry 90 91 Oxygen Delivery Me thod Nasal Cannula Nasal Cannula Oxygen Flow Rate 4 4 03/15/23 23:00 03/16/23 00:00 03/16/23 03:00 Temperature 97.5 F L 97.9 F Pulse Rate [Left A pical] 82 78 Pulse Rate [Pulse Oximeter] Respiratory Rate 18 16 Blood Pressure [Le ft Arm] 118/53 L 134/60 Pulse Oximetry 91 90 96 Oxygen Delivery Me thod Nasal Cannula Nasal Cannula Oxygen Flow Rate 4 4 03/16/23 07:45 03/16/23 07:45 03/16/23 08:00 Temperature 97.6 F Pulse Rate [Left A pical] 86 Pulse Rate [Pulse Oximeter] 86 Respiratory Rate 18 18 Blood Pressure [Le ft Arm] 152/82 H Pulse Oximetry 93 93 93 Oxygen Delivery Me thod Nasal Cannula Nasal Cannula Oxygen Flow Rate 3.5 3.5 HEENT is within normal limits Cardiovascular regular rate and rhythm Lungs lungs an occasional scattered rhonchi but no crackles or wheezes. No peripheral edema. Skin is without rashes.
[2023-03-16] MEDS: FUROSEMIDE 10 MG/ML inj 20 MG IVP (14:09)
[2023-03-16] MEDS: SODIUM CHLORIDE 0.9 % (FLUSH) 10 ML SYRINGE 5 ML IVF ×2 (14:10→21:01)
[2023-03-16] MEDS: cefTRIAXone 1 GM in 0.9 % SODIUM CHLORIDE Mini-bag 100 ML IVPB (14:25)
[2023-03-16] MEDS: AZITHROMYCIN 250 MG TABLET 500 MG PO (16:00)
[2023-03-16] MEDS: DULOXETINE 30 MG CAPSULE DR 60 MG PO (18:28)
--- NOTE | 2023-03-16 18:44 | PC.NURSE ---
shift note: vss stable. pt afeb. pt medicated with oxycodone for rt hip pain with relief. pt 1/walker with slow gait. pt did have difficulty with initiating transfer this a.m due to increased foot shuffle. Ls crkls bibasilar this a.m but dim throughout this afternoon. pt continues to need 3.5L pnc O2 to keep sats >90%. cms intact bilat l/e and PP + bilat. drsg site to rt hip c/d/i. Iv replaced to rt FA.
[2023-03-16] MEDS: MELATONIN 3 MG TABLET PO (21:01)
[2023-03-17] VITALS (7 sets, daily range): BP systolic 143–148; BP diastolic 61–64; PULSE 68–81; RESP 14–20; TEMP 36.4; O2SAT 91–95
[2023-03-17] MEDS: LEVOTHYROXINE 100 MCG TABLET PO (05:55)
[2023-03-17] MEDS: LEVOTHYROXINE 75 MCG TABLET PO (05:55)
--- NOTE | 2023-03-17 06:41 | PC.NURSE ---
23-07: pt on 2-3L O2 via NC, maintaining in the mid 90s, encouraged Aerobika and IS use when awake. A x 2?with gb and walker, needs frequent queues to move feet. VSS. Afebrile.
[2023-03-17 07:36] LABS: Chloride* 101 mmol/L (96-114); Potassium* 3.8 mmol/L (3.6-5.1); Sodium* 133 mmol/L (135-149)
[2023-03-17 07:37] LABS: Basophils Absolute Auto 0.04 K/uL (0.00-0.30); Basophils Percent Auto 0.5 % (0.0-3.0); Eosinophils Absolute Auto 0.31 K/uL (0.00-0.50); Eosinophils Percent Auto 4.2 % (0.0-7.0); Hematocrit 30.4 % (33.0-51.0); Hemoglobin* 10.2 gm/dL (12.0-16.0); Immature Granulocytes Abs Auto 0.02 K/uL (0.00-0.30); Immature Granulocytes Pct Auto 0.3 %; Lymphocytes Percent Auto 9.1 % (20-44); Mean Corpuscular HGB Conc 34 gm/dL (32-36); Mean Corpuscular Hemoglobin 31 pg (26-34); Mean Corpuscular Volume 91 fL (80-100); Neutrophils Percent Auto 77.9 % (42.0-72.0); Platelet Count* 233 K/uL (140-440); RDW Coefficient of Variation % 12.6 % (11.5-15.5); Red Blood Count 3.33 m/uL (4.00-5.20); White Blood Count* 7.38 K/uL (4.50-11.00)
[2023-03-17 07:39] LABS: Blood Urea Nitrogen* 22 mg/dL (7-30); Calcium* 7.8 mg/dL (8.4-10.6); Carbon Dioxide* 33 mmol/L (20-32); Creatinine* 0.5 mg/dL (0.5-1.5); Est. Creatinine Clearance* 43.91; Estimated Glomerular Filt Rate 100 ml/min; Glucose* 114 mg/dL (60-115)
[2023-03-17 07:50] LABS: Slide Review Reflex No
[2023-03-17] MEDS: SENNOSIDES 1 TAB TABLET 2 TAB PO (09:08)
[2023-03-17] MEDS: FUROSEMIDE 20 MG TABLET 10 MG PO (09:08)
[2023-03-17] MEDS: CARBIDOPA-LEVODOPA 25-100 TABLET 1.5 TAB PO (09:09)
[2023-03-17] MEDS: CETIRIZINE HCL 10 MG TABLET 5 MG PO (09:10)
[2023-03-17] MEDS: dilTIAZem 120 MG CAP.ER.24H 240 MG PO (09:10)
[2023-03-17] MEDS: RIVAROXABAN 10 MG TABLET PO (09:10)
[2023-03-17] MEDS: SIMVASTATIN 10 MG TABLET PO (09:11)
[2023-03-17] MEDS: SODIUM CHLORIDE 0.9 % (FLUSH) 10 ML SYRINGE 5 ML IVF (09:12)
[2023-03-17] MEDS: AZITHROMYCIN 250 MG TABLET 500 MG PO (09:19)
[2023-03-17] MEDS: cefTRIAXone 1 GM in 0.9 % SODIUM CHLORIDE Mini-bag 100 ML IVPB (09:20)
[2023-03-17] MEDS: METOPROLOL SUCCINATE (XL) 50 MG TAB PO (09:25)
--- NOTE | 2023-03-17 09:48 | RESP.RT ---
Patient up in chair, just walked to bathroom and return with assistance. On Nasal Cannula 2 Lpm, SaO2 93%. Use Aerobika very well, excellent effort, good chest shake, small non-productive cough post use. BBS clear, with good air movement.
--- NOTE | 2023-03-17 10:10 | PM.DS1 ---
DS: Providers Provider Time Seen by Provider: 10:13 Date Seen: 03/17/23 Date of admission: 03/13/23 23:28 Primary care physician: Jhony Retana MD Admitting Clinician: Maryann Jama MD Consults: 03/13/23 23:36 Consult to Physician [CONS] Routine Comment: Consulting Provider: Ketty Perry Has provider been notified: Yes 03/14/23 15:00 Consult to Occupational Therapy [CONS] Routine Comment: Reason(s) for OT Consult:: Evaluate and Treat Any Restrictions?:: See Comment Comment: evaluate and treat Consult to Physical Therapy [CONS] Routine Comment: Reason(s) for PT Consult:: Evaluate and Treat Any Restrictions?:: Wt Bearing as Tolerated Consult to Sign Artist [CONS] Routine Comment: Reason for Consult:: Discharge Planning Needs Attending Physician on discharge: Maryann Jama MD Date of Discharge: 03/17/23 DS: Diagnosis Discharge Diagnosis (1) Closed hip fracture: Status: Acute Problem details: s/p left femur intertrochanteric fracture fixation with IM nail (2) Pneumonia: Status: Acute Problem details: Diagnosed on 03/15 with RLL infiltrate and interstitial infiltrates. She was started on Ceftriaxone and Zithromax. Will continue both for at least 3 days. She needs an oupatient CT scan in 3 months to follow up on this. She is still hypoxic today on room air. If she continues to improve will send her to a nursing home facility tomorrow with her without oxygen depending on her oxygen needs. (3) Parkinson disease: Status: Acute Problem details: Continue home medications. This will likely make rehab little more difficult. Will need nursing home upon discharge. (4) Essential hypertension: Status: Acute Problem details: Continue home medications. She has had SVT in the past preumably that is why she is on both metoprolol and diltiazem. (5) Abnormal chest CT: Status: Acute Problem details: Needs a follow up chest CT in 3 months to determine if the infiltrates cleared. DS: Summary Hospital Course Hospital Course: Lian fell and was admitted to the hospital with a broken hip. This was surgically corrected. Her postop course was complicated by hypoxia. A chest CT confirm pneumonia. She continued to be mildly hypoxic even at the time of discharge. She was treated with 3 days of ceftriaxone and 3 days of Zithromax. She will be discharged on an additional 7 days of cefdinir. She will be discharged on oxygen 0-4 L per nasal cannula. This can be discontinued when her oxygen saturations are above 90% on room air. She was also found to have postop anemia postoperative hemoglobin of 10. Status at Discharge Cognitive/behavioral status at discharge: Back to baseline. Functional status at discharge: uses cane/walker Overall status at discharge: patient is progressing back to baseline Time Spent with Patient Time attestation: Total time spent providing and/or coordinating discharge services: Greater than 45 minutes was spent discharging the patient over half of that time spent counseling coordinating care. Time spent: Greater than 30 minutes Exam Const: Vital Signs, click to edit/add: Vital Signs - 24 hr 03/16/23 15:00 03/16/23 15:00 03/16/23 15:00 Temperature 96.9 F L Pulse Rate [Left A pical] 77 77 Pulse Rate [Pulse Oximeter] 82 82 Respiratory Rate 22 22 22 Blood Pressure [Le ft Arm] 101/70 Pulse Oximetry 94 94 Oxygen Delivery Me thod Nasal Cannula Nasal Cannula Oxygen Flow Rate 3.5 3.5 03/16/23 16:00 03/16/23 19:00 03/16/23 23:00 Temperature 97.5 F L Pulse Rate [Left A pical] 88 Pulse Rate [Pulse Oximeter] 78 Respiratory Rate 20 20 Blood Pressure [Le ft Arm] 155/49 H Pulse Oximetry 92 90 Oxygen Delivery Me thod Nasal Cannula Oxygen Flow Rate 3.5 03/16/23 23:00 03/16/23 23:00 03/17/23 00:00 Temperature 97.5 F L Pulse Rate [Left A pical] 78 Pulse Rate [Pulse Oximeter] Respiratory Rate 20 20 Blood Pressure [Le ft Arm] 149/51 H Pulse Oximetry 95 95 95 Oxygen Delivery Me thod Nasal Cannula Nasal Cannula Oxygen Flow Rate 2 2 03/17/23 03:00 03/17/23 07:35 03/17/23 09:45 Temperature 97.5 F L Pulse Rate [Left A pical] Pulse Rate [Pulse Oximeter] 68 81 Respiratory Rate 20 14 20 Blood Pressure [Le ft Arm] 148/61 H Pulse Oximetry 94 92 93 Oxygen Delivery Me thod Nasal Cannula Nasal Cannula Nasal Cannula Oxygen Flow Rate 2 3 2 Cardiovascular regular rate and rhythm. Lungs clear to auscultation bilaterally. Abdomen positive bowel sounds soft nontender. Skin is warm and dry and intact. Left hip as some bruising laterally minimal swelling dressing is clean dry and intact over the wound. Documenting provider has reviewed patient's vital signs: yes Common normals: no apparent distress DS: Data Data Completed and Pending Labs on day of discharge: Labs from last 24 hours 03/17/23 06:46 WBC 7.38 RBC 3.33 L Hgb 10.2 L Hct 30.4 L MCV 91 MCH 31 MCHC 34 RDW Coeff of Heber 12.6 Plt Count 233 Neut % (Auto) 77.9 H Lymph % (Auto) 9.1 L [place] % (Auto) 8.0 Eos % (Auto) 4.2 Baso % (Auto) 0.5 Neut # (Auto) 5.70 Lymph # (Auto) 0.70 L [place] # (Auto) 0.60 Eos # (Auto) 0.31 Baso # (Auto) 0.04 Sodium 133 L Potassium 3.8 Chloride 101 Carbon Dioxide 33 H BUN 22 Creatinine 0.5 Estimated Creat Clear 43.91 Estimated GFR 100 Glucose [address] Calcium 7[address] scan - chest: Radiologist's impression: INDICATION: Hypoxia. TECHNIQUE: CT chest PE was acquired with 95 cc Isovue 370 IV contrast. COMPARISON: Chest x-ray 03/13/2023. FINDINGS: Heart and vasculature: Contrast opacification of the pulmonary arterial tree is adequate. No sign of pulmonary embolism. Heart size is normal. Thoracic aorta and pulmonary artery are normal in caliber. There is mild atherosclerosis of the thoracic aorta. No CT scan evidence of right heart strain. Lungs and pleura: Scattered interstitial thickening and patchy lung opacities, nonspecific. Right lower lobe atelectasis/consolidation, suspicious for pneumonia. Follow-up CT scan of the chest is recommended in 3 months to confirm resolution.? No pleural effusions, pleural thickening, or pneumothorax. Lymph nodes/mediastinum: Increased density material throughout the esophagus, likely food. Esophageal lesion cannot be excluded. Chest wall: No masses. Upper abdomen: No acute or significant findings. Bones: Unremarkable for age. IMPRESSION: 1. No pulmonary arterial embolism. 2. Scattered interstitial thickening and patchy lung opacities, nonspecific. Follow-up CT scan of the chest in 3 months is recommended. 3. Right lower lobe atelectasis/consolidation, suspicious for pneumonia. Follow-up CT scan of the chest in 3 months is recommended. 4. Increased density material throughout the esophagus, likely food. An esophageal lesion cannot be excluded. Please note that all CT scans at this facility use dose modulation, iterative reconstruction, and/or weight-based dosing when appropriate to reduce radiation dose to as low as reasonably achievable. Dictated by Nico Sanderson MD @ 03/15/2023 2:07:02 PM (Electronically Signed) Additional Comments Additional comments: Follow up CT scan of chest in 3 months to follow up on above abnormalities. Discharge Plan Discharge Disposition: [facility] Date of Admission: 03/13/23 23:28 Attending Provider on Discharge: Say Santamaria Consulting Providers: Ketty Perry Primary Care Provider: Jhony Retana Condition: Improved Discharge Medications: New oxycodone 5 mg Tablet 2.5 - 5 mg PO Q4-6H MDD 6 tabs per day PRN (Reason: Pain) Qty: 30 0RF Rx Instructions: Minimize. Discontinue as soon as possible sennosides [Senna Lax] 8.6 mg Tablet 17.2 mg PO BID PRN (Reason: constipation) Qty: 100 0RF Xarelto 10 mg tablet 10 mg PO DAILY Qty: 30 0RF Rx Instructions: for 30 days cefdinir 300 mg capsule 300 mg PO BID Qty: 14 0RF Rx Instructions: Start first thing in the morning on 03/18/23 Continued amantadine HCl 100 mg tablet 100 mg PO BID acetaminophen [8 Hour Pain Reliever] 650 mg tablet extended release 1,300 mg PO Q8H PRN (Reason: pain) azelastine 137 mcg (0.1 %) aerosol,spray 2 spray INTRANASAL BID albuterol sulfate 90 mcg/actuation HFA aerosol inhaler 2 puff INHALATION Q6H PRN (Reason: dyspnea) levothyroxine 175 mcg tablet 175 mcg PO DAILY cetirizine 10 mg tablet 5 mg PO BID carbidopa-levodopa 50-200 mg tablet extended release 1 tab PO QPM furosemide 20 mg tablet 10 mg PO DAILY carbidopa-levodopa 25-100 mg tablet 1.5 tab PO 3XD diltiazem HCl [Matzim LA] 240 mg tablet extended release 24 hr 240 mg PO DAILY duloxetine 60 mg capsule,delayed release(DR/EC) 60 mg PO QPM guaifenesin [Mucus Relief ER] 600 mg tablet extended release 12hr 600 mg PO Q12H PRN metoprolol succinate 50 mg tablet extended release 24 hr 50 mg PO DAILY sennosides-docusate sodium [Stool Softener-Stimulant Laxat] 8.6-50 mg tablet 1 tab PO DAILY simvastatin 10 mg tablet 10 mg PO DAILY melatonin 3 mg tablet 3 mg PO HS PRN fluticasone propionate [Flovent HFA] 220 mcg/actuation HFA aerosol inhaler 2 puff INHALATION BID carboxymethylcellulose sodium [Refresh Tears] 0.5 % drops 2 drp ophthalmic (eye) Q6H PRN calcium carbonate-vitamin D3 [Calcium 600 + D(3)] 600 mg-10 mcg (400 unit) tablet 1 tab PO BID Discharge Orders: Discharge Order (Routine); Ordered 03/17/23 Ordered By: Say Santamaria Consulting provider completed their portion of the discharge: Yes Activity Detail: - Complete 23 hour perioperative antibiotics. - PT/OT consults for education and assistance. - Social consult for discharge planning. Patient will likely require SNF placement. - Weight bear as tolerated. - DVT prophylaxis includes: Xarelto and bilateral knee high Abraham stockings x 1 month, may remove for several hours per day. Frequent ambulation and ankle pumps when sedentary. - Anticipate patient will be discharged to a SNF once the patient remains medically stable, pain is controlled and is safe with ambulation. - Mepilex dressings will be removed at SNF in 7-10 days. Nursing staff there will perform a wound check and notify our clinic with any concerns. Dressing is waterproof. May shower. Remove dressing if becomes saturated. - Return to clinic in [address] Boateng. - Prescribed analgesics as needed. Patient is content with current narcotic medications. Minimize narcotic pain medication use; wean off and discontinue as soon as possible. - Phone Orthopedics with any questions or concerns. Discharge Diet: Regular Follow Up Appointments: [facility] [Outside] Jhony Retana MD [Primary Care Provider] - Forms: [facility] Info Instructions Therapy: Physical Therapy and Occupational Therapy Therapy Orders Additional Information: OT and PT at nursing home facility daily Orders are good >30 days: Yes
--- NOTE | 2023-03-17 11:19 | PC.NURSE ---
D/c: Patient alert and able to express needs. A1 w/ walker and gait belt. Pt reports no pain. Dressings are c/d/i. Tolerating regular diet. IV removed with tip intact. D/c instructions sent with pt to be given to facility. D/c at 1111.
== END 2023-03-17 11:11 | DRG 480 ==
LOC: ED 19:19 → MEDSURG 19:59
PROVIDERS: Family Medicine; Orthopaedic Surgery Sports Medicine; Admitting Provider Family Medicine; Emergency Provider Family Medicine; PCP Family Medicine; Visit Provider Family Medicine
PROC: 0QS706Z Reposition Left Upper Femur with Intramedullary Internal Fixation Device, Open Approach (ICD-10-PCS; CPT 27245; principal; 2023-03-14 12:00)
DX: S72.142A Displaced intertrochanteric fracture of left femur, initial encounter for closed fracture (principal); J18.9 Pneumonia, unspecified organism; J95.89 Other postprocedural complications and disorders of respiratory system, not elsewhere classified; D62 Acute posthemorrhagic anemia; R09.02 Hypoxemia; G20 Parkinson's disease; I10 Essential (primary) hypertension; M16.0 Bilateral primary osteoarthritis of hip; M85.80 Other specified disorders of bone density and structure, unspecified site; Y92.091 Bathroom in other non-institutional residence as the place of occurrence of the external cause; W01.0XXA Fall on same level from slipping, tripping and stumbling without subsequent striking against object, initial encounter; Z91.81 History of falling; E78.5 Hyperlipidemia, unspecified; E03.9 Hypothyroidism, unspecified; Z85.3 Personal history of malignant neoplasm of breast; J30.89 Other allergic rhinitis
CPT/HCPCS: 01210; 36415; 70450; 71045; 71260; 72125; 73502; 73552; 76942; 80048; 82565; 84132; 84295; 84520; 85025; 85027; 85610; 85730; 87635; 93005; 94640; 94664; 94761; 97110; 97116; 97162; 97165; 97530; 97535; 99284; 99285; A9270; C1713; J0690; J0696; J1170; J1200; J1940; J2250; J2370; J2405; J2704; J2795; J3490; J7120; Q9967

== ENCOUNTER 2023-10-19 11:15 | Outpatient (REF) | payer MEDICARE, BC, SELFPAY ==
[2023-10-19 13:14] LABS: Creatinine* 0.7 mg/dL (0.5-1.5); Estimated Glomerular Filt Rate 92 ml/min
== END 2023-10-19 11:16 | disposition home or self-care (01) ==
LOC: NPINS 11:15
PROVIDERS: PCP Family Medicine; Visit Provider Family Medicine
DX: I10 Essential (primary) hypertension (principal); E03.9 Hypothyroidism, unspecified
CPT/HCPCS: 82565; 84443

== ENCOUNTER 2023-11-17 08:20 | Outpatient (REF) | payer MEDICARE, BC, SELFPAY ==
[2023-11-17 08:46] LABS: Cholesterol* 171 mg/dL (90-199); HDL Cholesterol* 49 mg/dL (>=50); LDL Cholesterol Calculated 101 mg/dL (<100); Triglycerides* 106 mg/dL (40-149)
== END 2023-11-17 08:21 | disposition home or self-care (01) ==
LOC: NPINS 08:20
PROVIDERS: PCP Family Medicine; Visit Provider Nurse Practitioner Gerontology
DX: E78.5 Hyperlipidemia, unspecified (principal)
CPT/HCPCS: 80061

== ENCOUNTER 2024-09-19 12:28 | Outpatient (REF) | payer MEDICARE, BC, SELFPAY ==
[2024-09-19 12:48] LABS: Basophils Absolute Auto 0.03 K/uL (0.00-0.30); Basophils Percent Auto 0.4 % (0.0-3.0); Eosinophils Absolute Auto 0.23 K/uL (0.00-0.50); Eosinophils Percent Auto 3.3 % (0.0-7.0); Hematocrit 41.1 % (33.0-51.0); Hemoglobin* 13.3 gm/dL (12.0-16.0); Immature Granulocytes Abs Auto 0.01 K/uL (0.00-0.30); Immature Granulocytes Pct Auto 0.1 %; Lymphocytes Percent Auto 11.6 % (20-44); Mean Corpuscular HGB Conc 32 gm/dL (32-36); Mean Corpuscular Hemoglobin 30 pg (26-34); Mean Corpuscular Volume 93 fL (80-100); Monocytes Percent Auto 7.3 % (0.0-11.0); Neutrophils Percent Auto 77.3 % (42.0-72.0); Platelet Count* 258 K/uL (140-440); RDW Coefficient of Variation % 12.6 % (11.5-15.5); Red Blood Count 4.44 m/uL (4.00-5.20)
[2024-09-19 12:54] LABS: Slide Review Reflex No
[2024-09-19 13:01] LABS: Chloride* 102 mmol/L (96-114)
[2024-09-19 13:02] LABS: Potassium* 4.5 mmol/L (3.6-5.1); Sodium* 136 mmol/L (135-149)
[2024-09-19 13:04] LABS: Creatinine* 0.7 mg/dL (0.5-1.5); Estimated Glomerular Filt Rate 91 ml/min
[2024-09-19 13:05] LABS: Anion Gap 8 mEq/L (7-15); Blood Urea Nitrogen* 18 mg/dL (7-30); Carbon Dioxide* 26 mmol/L (20-32); Glucose* 92 mg/dL (60-115)
== END 2024-09-19 12:29 | disposition home or self-care (01) ==
LOC: NPINS 12:28
PROVIDERS: PCP Family Medicine; Visit Provider Family Medicine
DX: D80.1 Nonfamilial hypogammaglobulinemia (principal)
CPT/HCPCS: 80048; 84443; 85025

== ENCOUNTER 2025-10-30 09:21 | Outpatient (REF) | payer MEDICARE, BC, SELFPAY ==
[2025-10-30 09:58] LABS: Hematocrit* 39.1 % (33.0-51.0); Hemoglobin* 12.7 gm/dL (12.0-16.0); Immature Granulocytes Abs Auto 0.01 K/uL (0.00-0.30); Immature Granulocytes Pct Auto 0.2 %; Lymphocytes Absolute Auto 0.80 K/uL (0.90-2.90); Mean Corpuscular HGB Conc 33 gm/dL (32-36); Mean Corpuscular Hemoglobin 30 pg (26-34); Mean Corpuscular Volume 94 fL (80-100); RDW Coefficient of Variation % 12.5 % (11.5-15.5); Red Blood Count* 4.18 m/uL (4.00-5.20); White Blood Count* 4.89 K/uL (4.50-11.00)
[2025-10-30 10:06] LABS: Slide Review Reflex No
[2025-10-30 10:50] LABS: Chloride* 100 mmol/L (96-114); Potassium* 4.9 mmol/L (3.6-5.1); Sodium* 136 mmol/L (135-149)
[2025-10-30 10:53] LABS: Blood Urea Nitrogen* 16 mg/dL (7-30); Creatinine* 0.6 mg/dL (0.5-1.5); Estimated Glomerular Filt Rate 94 ml/min
[2025-10-30 10:54] LABS: Anion Gap 10 mEq/L (7-15); Calcium* 8.8 mg/dL (8.4-10.6); Carbon Dioxide* 26 mmol/L (20-32); Cholesterol* 169 mg/dL (90-199); Glucose* 110 mg/dL (60-115); HDL Cholesterol* 39 mg/dL (>=50); Triglycerides* 189 mg/dL (40-149)
--- OUTSIDE RECORDS SUMMARY | 2025-10-31 00:34 | XMS_ITS | Clinical Summary ---
Author Organization [facility] Address [address] [place] [address] Care Team Providers Care Elementary Spanish Teacher Name Role Phone Duc Urbina MD Primary Care Provider [phone] Allergies Active Allergy Reactions Criticality Noted Date Comments Food 03/16/2003 Milk - nasal congestion, diarrhea. No Clinical Screening - Other Allergy 04/03/2004 Significant reactions to trees, grasses, dust mite, ragweed, and Alternaria on skin testing 12/26/01. Medications Levothyroxine Sodium (SYNTHROID PO) Take 175 mcg by mouth daily Active calcium-vitamin D (CALTRATE) 600-400 MG-UNIT per tablet Take 1 tablet by mouth 2 times daily Active fluticasone (FLONASE) 50 MCG/ACT spray [place] 2 sprays into both nostrils daily Active fluticasone (FLOVENT HFA) 220 MCG/ACT Inhaler Inhale 2 puffs into the lungs 2 times daily Active METOPROLOL SUCCINATE ER PO Take 100 mg by mouth daily Active Multiple Vitamin (MULTI VITAMIN DAILY PO) Take 1 tablet by mouth daily Active SIMVASTATIN PO Take 10 mg by mouth At Bedtime Active triamcinolone (KENALOG) 0.1 % cream Apply topically 2 times daily Active montelukast (SINGULAIR) 10 MG tabletIndicatio ns:Seasonal allergic rhinitis, unspecified allergic rhinitis trigger,Chronic rhinitis,Nasal congestion Take 1 tablet (10 mg) by mouth At Bedtime 30 tablet 11 7 Active carbidopa-levod opa (SINEMET) 25-100 MG per tablet Take 1 tablet by mouth 4 times daily May take an additional 1/2 tablet up to twice daily between doses for breakthrough symtoms. 7 Active diltiazem ER (TIAZAC) 180 MG 24 hr ER beaded capsule Take 180 mg by mouth daily Active COENZYME Q10 PO Take 1 capsule by mouth daily Active diphenhydrAMINE -acetaminophen (TYLENOL PM) 25-500 MG tablet Take 1 tablet by mouth nightly as needed for sleep Active fluticasone (FLONASE) 50 MCG/ACT nasal sprayIndication s:Perennial allergic rhinitis,Nasal congestion [place] 2 sprays into both nostrils daily 16 g 3 1 Active guaiFENesin (MUCINEX) 600 MG 12 hr tabletIndicatio ns:Perennial allergic rhinitis,Nasal congestion Take 2 tablets (1,200 mg) by mouth 2 times daily as needed for congestion 28 tablet 3 1 Active cetirizine (ZYRTEC) 10 MG tabletIndicatio ns:Perennial allergic rhinitis,Nasal congestion Take 1 tablet (10 mg) by mouth daily 60 tablet 3 1 Active azelastine (ASTELIN) 0.1 % nasal sprayIndication s:Nasal congestion,Post -nasal drip,Perennial allergic rhinitis [place] 2 sprays into both nostrils 2 times daily 30 mL 3 1 Active Active Problems Problem Noted Date Diagnosed Date Median mandibular cyst 10/09/2019 Overview (10/09/2019): Added automatically from request for surgery [id number] BMI 26.0-26.9,adult 09/08/2019 Overview (10/09/2019): 08/24/19 visit Epidermal inclusion cyst 12/21/2017 Parkinson disease 12/20/2017 Primary osteoarthritis of both knees 08/11/2016 Seborrheic keratosis 01/30/2013 Osteopenia 05/06/2009 Sustained supraventricular tachycardia 9 Essential hypertension 12/26/2008 Overview (03/08/2018): Overview: IMO Update Blood glucose abnormal 05/16/2007 Overview (03/08/2018): Overview: IMO Update 09/08 Allergic state 12/08/2006 Overview (03/08/2018): Overview: IMO Update 09/08 Malignant neoplasm of upper-outer quadrant of fe male breast 05/06/2006 History of breast cancer 05/06/2006 Hyperlipidemia 05/03/2006 Overview (03/08/2018): Overview: IMO Update 09/08 Hypothyroidism 05/03/2006 Overview (03/08/2018): Overview: IMO Update 09/08 Resolved Problems Problem Noted Date Diagnosed Date Resolved Date HCD (health care directive) 06/29/2019 10/20/2019 Overview (09/02/2020): IMO Regulatory Load AUG 2020 Immunizations Immunization Administration Dates Next Due Anthrax 05/03/2006 DTaP, Unspecified 08/10/2016,05/03/2006 Flu, Unspecified 08/15/2012, 8,09/13/2007,2005,09/08/2005,09/01/2004,09/27/2003,1 12/17/2001 [id number] Novel Flu 10/04/2009 HepB, Unspecified 02/07/1997,09/01/1996,08/08/19 96 Hepatitis B Not Indicated - By Hx 02/07/1997,02/1996,08/08/1996 Influenza (High Dose) Trival ent,PF (Fluzone) 08/24/2019,08/17/2018,08/16/2017 Influenza (prior to 2023) 09/03/2011,09/10/2010, 08/07/2009 Influenza Vaccine 65+ (Fluzone HD) 08/28/2020 Influenza Vaccine >6 months,quad, PF 08/29/2015, 08/20/2014,08/29/2013 Pneumo Conj 13-V (2010&after) 02/27/2016 Pneumococcal 23 valent 04/09/2017 TD,PF 7+ (Tenivac) 08/10/2016,06/29/1996, 996 TDAP Vaccine (Adacel) 05/03/2006 Td (Adult), Adsorbed 06/29/1996,11/29/1995 Zoster recombinant adjuvante d (Shingrix) 08/20/2012 Zoster vaccine, live 08/20/2012 Social History Tobacco Use Types Packs/Day Years Used Date Smoking Tobacco: Never Smokeless Tobacco: Never Alcohol Use Standard Drinks/Week Comments Not Asked 0 (1 standard drink = 0.6 oz pur e alcohol) Adolescent Education Answer Date Record ed Getting School Help Needed Not on file 08/20 Comments No Sex and Gender Information Value Date Recorded Sex Assigned at Not on file Legal Sex Female [address] 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 Gender Identity Not on file Sexual Orientation Not on file Last Filed Vital Signs Vital Sign Reading Time Taken Comments Blood Pressure 148/65 03/10/2021 10:15 PM CDT Pulse 93 03/10/2021 10:15 PM CDT Temperature 37.6 C (99.7 F) 03/10/2021 10:45 PM CDT Respiratory Rate 20 03/10/2021 11:05 PM CDT Oxygen Saturation 96% 03/10/2021 10:45 PM CDT Inhaled Oxygen Concentration - - Weight 72.6 kg (160 lb) 02/26/2021 10:17 AM CDT Height 167.6 cm (5' 6) 02/26/2021 10:17 AM CDT Body Mass Index 25.82 02/26/2021 10:17 AM CDT Plan of Treatment Not on file Insurance JAIRO SOLIS [id number] [employer] MEDICARE Advance Directives For more information, please contact: [phone] Documents on File Type Date Recorded Patient Schedule Analyst Expl anation Advance Directives and Living Will 10/18/2019 1:15 PM HEALTH CARE DIRECTIV E 06/29/2019 Healthcare Agents on File Name Relationship Healthcare Agent Relationship Communication Lesvia Nugent Sister Health Care Agent Ashly Gallagher Sister First Alternat e Health Care Agent Care Teams Elementary Spanish Teacher Relationship Specialty Start Date End Date Duc Urbina MD [address] [id number] PCP - General 04/12/13
--- OUTSIDE RECORDS SUMMARY | 2025-10-31 00:34 | XMS_ITS | Clinical Summary ---
Author Organization [facility] Address [address] , [address] [place] [address] Phone Care Team Providers Care Revenue Research Analyst Name Role Phone Aster Sultana LPN [phone] Conditions or Problems Problem Name Problem Code Onset Date Status Entry Date Provider Comment Standard Description Annotate Hx of falls 169378742 (SNOMED CT) 07/06 Active 07/06 Efrain Siegel MD History of fall Parkinsonis m, unspecified 23535418 (SNOMED CT) 12/20 Resolved 12/20 Efrain Siegel MD Parkinsonism Dysphagia 32060457 (SNOMED CT) 06/19 Active 06/19 Phylicia Esperanza Cherucheril PA-C Dysphagia Parkinsonis m, unspecified 39964853 (SNOMED CT) 12/20 Removed 12/20 Phylicia Esperanza Cherucheril PA-C Parkinsonism Hypogammagl obulinemia 280571206 (SNOMED CT) 06/03 Active 06/03 Phylicia Esperanza Cherucheril PA-C Hypogammaglobu linemia Peripheral polyneuropa thy 730631923 (SNOMED CT) 04/08 Active 04/09 Don Neff MD Peripheral nerve disease Numbness 10023013 (SNOMED CT) 12/19 Active 12/19 Danial Casey MD Numbness Parkinson's disease 32621693 (SNOMED CT) 06/16 Active 06/16 Jud maldonado DO Parkinson's disease Medications Medication Instructions Start Date Stop Date Generic Name NDC Provider CARBIDOPA-LEVO DOPA ER 50-200 MG CR-TABS 1 tablet by mouth at bedtime 12/19 carbidopa-levodopa 83333169492 Efrain Siegel MD AMANTADINE HCL 100 MG TABS take 1 tab twice a day. 12/04 amantadine hcl 76489695449 Efrain Siegel MD CARBIDOPA-LEVO DOPA 25-100 MG TABS TAKE 1 AND 1/2 TABLETS BY MOUTH THREE TIMES DAILY WITHOUT FOOD 06/09 carbidopa-levodopa 18676415751 Efrain Siegel MD CARBIDOPA-LEVO DOPA 25-100 MG TABS TAKE 2 TABLETS BY MOUTH 4 TIMES DAILY WITHOUT FOOD at 6:30 am, between 10 am, 130 pm and 430 pm. Keep the bed time doze the same. 07/06 carbidopa-levodopa 02156463227 Efrain Siegel MD AMANTADINE HCL 100 MG TABS take 1 tab twice a day. May increase to 3x per day if dyskinesia is worse 07/06 amantadine hcl 50253897339 Efrain Siegel MD GUAIFENESIN ER 600 MG [id number] 1 tab every 12 hours as needed for post nasal drip 12/20 guaifenesin 41047421160 Phylicia Lemos PA-C ACETAMINOPHEN 500 MG TABS 2 tab TID acetaminophen 34146194706 Phylicia Lemos PA-C AMANTADINE HCL 100 MG TABS take 1 tab twice a day. 12/04 amantadine hcl 12208923362 Phylicia Lemos PA-C TRAMADOL HCL 50 MG TABS 1/2 tab once daily for pain tramadol 00319764177 Phylicia Lemos PA-C GUAIFENESIN ER 600 MG [id number] 1 tab twice a day for nasal drip guaifenesin 47479367758 Phylicia Lemos PA-C DULCOLAX 10 MG SUPP bisacodyl 06553870631 Phylicia Lemos PA-C MYLANTA MAXIMUM STRENGTH 400-400-40 MG/5ML SUSP alum-mag hydroxide-simeth 09218358566 Phyliciaduc Cartermichael WILLIS EAR WAX REMOVAL DROPS 6.5 % SOLN carbamide peroxide 45949297551 Darrell Cratermichael WILLIS Imodium A-D 2 mg tablet loperamide 03513033230 Phylicia Cartermichael WILLIS MILK OF MAGNESIA 7.75 % SUSP magnesium hydroxide 93655193493 Jamari Mata Aminta WILLIS CARBIDOPA-LEVO DOPA 25-100 MG TABS Take 1/2 tablet by mouth up to twice a day as needed for breakthrough PD symptoms. OK to take even if it is close to a scheduled dose of carbidopa-lev odopa carbidopa-levodopa 21640446279 Phyliciaestela Witttayla Lemos PA-C DULOXETINE HCL 60 MG CPEP TAKE ONE CAPSULE BY MOUTH AT BEDTIME 06/04 duloxetine 96455417865 Phyliciaestela Witttayla Lemos PA-C SYNTHROID 175 MCG TABS 06/16 levothyroxine 89370541231 Phylicia Esperanzabryan Lemos PA-C FUROSEMIDE 20 MG TABS 06/16 furosemide 68533635243 Phylicia Esperanzatayla Lemos PA-C ALBUTEROL SULFATE HFA 108 (90 Base) MCG/ACT AERS 06/16 albuterol sulfate 52937901294 Phylicia Esperanzatayla Lemos PA-C AZELASTINE HCL 0.1 % SOLN 06/16 azelastine 03563298391 Phylicia Esperanzamary Lemos PA-C ALENDRONATE SODIUM 70 MG TABS alendronate 70775674081 Phylicia Esperanzamary Lemos PA-C METOPROLOL SUCCINATE ER 50 MG [id number] TAKE ONE TABLET BY MOUTH ONCE DAILY metoprolol succinate 95497491264 Phylicia Esperanzamary Lemos PA-C LEVOTHYROXINE SODIUM 175 MCG TABS TAKE ONE TABLET BY MOUTH ONE TIME A DAY levothyroxine 85051484768 Phylicia RAMIREZ-C CARBIDOPA-LEVO DOPA 25-100 MG TABS TAKE 1 AND 1/2 TABLETS BY MOUTH THREE TIMES DAILY WITHOUT FOOD 06/09 carbidopa-levodopa 26030647876 Phylicia CHAPMANC DULOXETINE HCL 30 MG CPEP take 1 cap (30 mg) q am in addition to 60 mg q pm 06/22 duloxetine 92054332379 Phylicia RAMIREZ-C DULOXETINE HCL 30 MG CPEP TAKE ONE CAPSULE BY MOUTH EVERY MORNING 12/08 duloxetine 73849704262 Phylicia CHAPMANC STOOL SOFTENER PLUS LAXATIVE 8.6-50 MG TABS TAKE ONE TABLET BY MOUTH EVERY DAY sennosides-docusate sodium 52952958181 Phylicia Lemos PA-C REFRESH TEARS 0.5 % SOLN INSTILL 2 DROPS INTO BOTH EYES EVERY SIX HOURS NEEDED FOR DRY EYES carboxymethylcellulo se sodium 53366489510 Phylicia CHAPMANC OMEPRAZOLE 10 MG CPDR omeprazole 93575319674 Phylicia CHAPMANC ZYRTEC ALLERGY 10 MG CAPS 06/16 cetirizine 72551671801 Phylicia CHAPMANC DULOXETINE HCL 60 MG CPEP TAKE ONE CAPSULE BY MOUTH AT BEDTIME 06/04 duloxetine 10173821816 Phylicia CHAPMANC Flovent HFA 110 mcg/actuation HFA aerosol inhaler 06/16 fluticasone propionate 15450349220 Phylicia CHAPMANC Lactaid 3,000 unit tablet 06/16 lactase 57056201288 Phylicia Lemos PA-C ACETAMINOPHEN 500 MG TABS 12/20 acetaminophen 83126234342 Phylicia Abebegeovani WILLIS ASPERCREME LIDOCAINE ESSENTIAL 4 % LIQD lidocaine hcl 33806331711 Phylicia Abebegeovani WILLIS FEXOFENADINE HCL 60 MG TABS TAKE ONE TABLET BY MOUTH TWICE A DAY FOR ALLERGIES fexofenadine 30621203298 Phylicia Abebegeovani WILLIS GUAIFENESIN ER 600 MG [id number] 1 tab every 12 hours as needed for post nasal drip 12/20 guaifenesin 90923570968 Phylicia Abebegeovani WILLIS DULOXETINE HCL 30 MG CPEP take 1 cap (30 mg) q am in addition to 60 mg q pm 06/22 duloxetine 12102335910 Phylicia Abebegeovani WILLIS CARBIDOPA-LEVO DOPA 25-100 MG TABS TAKE 1/2 TABLET EVERY 12 HOURS NEEDED 06/04 carbidopa-levodopa 87687440215 Efrain Siegel MD CARBIDOPA-LEVO DOPA 25-100 MG TABS TAKE 1.5 TABLETS BY MOUTH THREE TIMES DAILY WITHOUT FOOD AT 8 AM AM, 10:30 AM AND 4 PM (APPROXIMATE TIMES) 06/09 carbidopa-levodopa 30970003465 Efrain Siegel MD CARBIDOPA-LEVO DOPA 25-100 MG TABS TAKE 1 AND 1/2 TABLETS BY MOUTH THREE TIMES DAILY WITHOUT FOOD 06/09 carbidopa-levodopa 99600261984 Efrain Siegel MD DULOXETINE HCL 60 MG CPEP take 1 cap (60 mg) by mouth at bedtime. 01/18 duloxetine 91522355324 Efrain Siegel MD CARBIDOPA-LEVO DOPA 25-100 MG TABS TAKE 1.5 TABLETS BY MOUTH THREE TIMES DAILY WITHOUT FOOD AT 8 AM AM, 10:30 AM AND 4 PM (APPROXIMATE TIMES) 06/08 carbidopa-levodopa 51974323217 Efrain Siegel MD CARBIDOPA-LEVO DOPA 25-100 MG TABS take 0.5 tab every 12 hours as needed. 12/04 carbidopa-levodopa 61832777238 Efrain Siegel MD CARBIDOPA-LEVO DOPA 25-100 MG TABS TAKE 1/2 TABLET EVERY 12 HOURS NEEDED 06/04 carbidopa-levodopa 47155504606 Efrain Siegel MD DULOXETINE HCL 60 MG CPEP TAKE ONE CAPSULE BY MOUTH AT BEDTIME 06/04 duloxetine 27920751206 Efrain Siegel MD VITAMIN B6 TABLET 06/16 VITAMIN B6 TABLET Efrain Siegel MD FEXOFENADINE HCL 60 MG TABS 06/16 fexofenadine 87971508931 Efrain Siegel MD RA ACETAMINOPHEN EX ST 500 MG TABS 12/18 acetaminophen 70151871284 Efrain Siegel MD CARBIDOPA-LEVO DOPA 25-100 MG TABS TAKE 1.5 TABLETS BY MOUTH THREE TIMES DAILY WITHOUT FOOD AT 8 AM AM, 10:30 AM AND 4 PM (APPROXIMATE TIMES) 06/08 carbidopa-levodopa 75840426330 Phylicia Lemos PA-C AMANTADINE HCL 100 MG TABS week 1: take 1 tab every evening. week 2 onward: take 1 tab twice a day. 12/04 amantadine hcl 21151153778 Phylicia Lemos PA-C CARBIDOPA-LEVO DOPA 25-100 MG TABS take 0.5 tab every 12 hours as needed. 12/04 carbidopa-levodopa 92437613271 Phylicia Lemos PA-C DULOXETINE HCL 30 MG CPEP take 1 cap by mouth at bedtime. 05/12 duloxetine 87275200537 Phylicia Lemos PA-C DULOXETINE HCL 60 MG CPEP take 1 cap (60 mg) by mouth at bedtime. 01/18 duloxetine 65841887221 Phylicia Lemos PA-C CARBIDOPA-LEVO DOPA 25-100 MG TABS TAKE 1.5 TABLETS BY MOUTH THREE TIMES DAILY WITHOUT FOOD AT 8 AM AM, 10:30 AM AND 4 PM (APPROXIMATE TIMES) 06/08 carbidopa-levodopa 73637190231 Oumou King DNP,LOAN ANALYST,GANG SUPERVISOR [employer]ES CARBIDOPA-LEVO DOPA 25-100 MG TABS TAKE 2 TABLETS BY MOUTH THREE TIMES DAILY WITHOUT FOOD AT 8 AM, 12 PM AND 4 PM (APPROXIMATE TIMES) 06/08 carbidopa-levodopa 86132895793 Oumou King DNP,LOAN ANALYST,GANG SUPERVISOR [employer]ES DULOXETINE HCL 30 MG CPEP take 1 cap by mouth at bedtime. 05/12 duloxetine 44370838942 Phylicia Lemos PA-C RA ACETAMINOPHEN EX ST 500 MG TABS 12/18 acetaminophen 88138653236 Phylicia Lemos PA-C SYNTHROID 175 MCG TABS 06/16 levothyroxine 69379622449 Jud maldonado DO SIMVASTATIN 10 MG TABS 06/16 simvastatin 34255335739 Jud alemanon DO VITAMIN B6 TABLET 06/16 VITAMIN B6 TABLET Jud maldonado DO ALBUTEROL SULFATE HFA 108 (90 Base) MCG/ACT AERS 06/16 albuterol sulfate 57707750777 Jud maldonado DO Flovent HFA 110 mcg/actuation HFA aerosol inhaler 06/16 fluticasone propionate 88265599057 Jud alemanon DO SINEMET 25-100 MG TABS 1.5 every eight hours as needed 06/16 carbidopa-levodopa 46819590516 Jud alemanon DO CARDIZEM LA 240 MG [id number] 06/16 diltiazem hcl 81571216349 Jud Mobley nson DO LACTAID 3000 UNIT TABS 06/16 lactase 95874268612 Jud Villalobosi nson DO CALCIUM 600/VITAMIN D 600-400 MG-UNIT CHEW 06/16 CALCIUM CARBONATE-VITAMIN D Jud Mobley nson DO FUROSEMIDE 20 MG TABS 06/16 furosemide 22115790587 Jud Mobley nson DO ZYRTEC ALLERGY 10 MG CAPS 06/16 cetirizine 10323352460 Jud Mobley nson DO MELATONIN ER 3 MG CR-TABS 06/16 melatonin 59998914049 Jud Mobley nson DO AZELASTINE HCL 0.1 % SOLN 06/16 azelastine 69128677123 Jud Mobley nson DO FEXOFENADINE HCL 60 MG TABS 06/16 fexofenadine 18945391376 Jud Mobley nson DO CARBIDOPA-LEVO DOPA ER 50-200 MG CR-TABS 1 tablet by mouth at bedtime 12/19 carbidopa-levodopa 73955608784 Danial Casey MD SINEMET 25-100 MG TABS 1.5 tablet by mouth three times a day 12/19 carbidopa-levodopa 88039103098 Danial Casey MD ZYRTEC ALLERGY 10 MG CAPS 06/16 CETIRIZINE HCL 58281030032 Jud Mobley nson DO VITAMIN B6 TABS 06/16 PYRIDOXINE HCL TABS 51201465289 Jdu Mobley nson DO SYNTHROID 175 MCG TABS 06/16 LEVOTHYROXINE SODIUM 01804831184 Jud Mobley nson DO SINEMET 25-100 MG TABS 1.5 p.o. Q 6:00 a.m., 10:30 a.m., 4:00 p.m., 10pm may take half a pill daily as needed 06/16 CARBIDOPA-LEVODOPA 05727829274 Jud Mobley nson DO SIMVASTATIN 10 MG TABS 06/16 SIMVASTATIN 15456341363 Jud Mobley nson DO FEXOFENADINE HCL TABS 06/16 FEXOFENADINE HCL TABS 93209500484 Jud Mobley nson DO MELATONIN ER 3 MG CR-TABS 06/16 MELATONIN 58152035019 Jud alemanon DO LACTAID TABS 06/16 LACTASE TABS 91244142806 Jud alemanon DO FUROSEMIDE 20 MG TABS 06/16 FUROSEMIDE 75742135521 Jud alemanon DO FLOVENT HFA 110 MCG/ACT INHALATION INHALER 06/16 FLUTICASONE PROPIONATE HFA 79640800777 Jud maldonado DO CARDIZEM LA 240 MG [id number] 06/16 DILTIAZEM HCL COATED BEADS 34150526294 Jud maldonado DO CALCIUM 600/VITAMIN D 600-400 MG-UNIT ORAL TABLET CHEWABLE 06/16 CALCIUM CARBONATE-VITAMIN D 77321276469 Jud alemanon DO AZELASTINE HCL 137 MCG/SPRAY SOLN 06/16 AZELASTINE HCL 85897648399 Jud maldonado DO ALBUTEROL SULFATE HFA 108 (90 Base) MCG/ACT AERS 06/16 ALBUTEROL SULFATE 95479371209 Jud alemanon DO Medications Administered No information available. Allergies, Adverse Reactions, Alerts Allergy Name Reaction Description Start Date Severity Status Provider ENRIQUE Mild Active Phyliciaduc steward Aminta WILLIS TREES Mild Active Phylicia Gabe steward Aminta WILLIS NKDA Critical No Longer Active Danial Casey MD NKDA Critical No Longer Active Jud Nugent DO Results Date Name Value Unit Range Flag Description Internal Other: Authorizatio n - OBS [id number] Yes GE use only - for LinkLogic import when terms are not otherwise specified Office Visit: Office Visit DEMENTIA2 Assessment of cognition performed and results reviewed. Total score [M MSE] [id number] Normal Total scor e [MoCA] MMSE SCORE 30 Total scor e [MMSE] SMOK STATUS never smoker Toba named account executive smoking status Internal Other: Verbal Autho rization/Emergency Contact - OBS VERBAL_EMER DONE Verbal authorization and emergency contact Office Visit: Office Visit F lacho avila Pt's sister sched fax MEDS REVIEW Done Documenta tion of current medications (procedure) Internal Other: Authorizatio n AUTHBENEFIT Yes Authoriza tion: Assignment of Benefits and Payment Agreement [email or web address] Yes Authorizat ion: Authorization for [facility] to leave messages, voicemail, send text messages, send emails AUTHRELHCARE Yes Authoriz ation: Release/Retrieval of Information to/from Healthcare Facilities, Pharmacy Benefit Payers and Providers ROIAUTHOTHER Yes Authoriz ation: Release of Information - Authorize Others/Insurance - Payment and Healthcare Operations [email or web address] Yes Authoriza tion: Release of Information - Authorize [facility] - Payment and Healthcare Operations AUTHPRIVPRAC Yes Authoriz ation: Notice of privacy practices HIECONSENT Yes Consent To Release information to the Health Information Exchange (HIE) Plan of Care Type Date Detail Appointment 10:00 CRESCENCIO Lemos PA-C, [address], [address], [place], [address], Pending order Follow up CLEVE Pending order Follow up [facility]VE Pending order Patient Instruct ions Pending order Follow up CLEVE Pending order Patient Instruct ions Pending order Follow up with N eurologist or CLEVE Pending order Other Order Pending order Other Order Pending order Follow up with N eurologist or CLEVE Pending order Follow up with N eurologist or CLEVE Pending order Patient Instruct ions Pending order Patient Instruct ions Pending order Follow up with N eurologist or CLEVE Pending order Follow up CLEVE Pending order Follow up CLEVE Pending order Obtain outside r ecords Pending order Patient Instruct ions Pending order Obtain outside r ecords Pending order Follow up CLEVE in clinic or telemedicine Pending order Patient Instruct ions Pending order Follow up CLEVE in clinic Pending order Other Referral Pending order Other Referral Pending order Follow up in cli [facility] or telemedicine Pending order Follow up CLEVE te lemedicine Pending order Other Referral Pending order Hemoglobin A1C Pending order KALEN Pending order C Reactive Prote in (CRP) Qn Pending order ESR (Sedimentati on Rate) Pending order Glucose Fast & 2 hr (2 hr GTT) Pending order Immunofixation S blair w/Electrophoresis Pending order Methylmalonic Ac id Serum (MMA) Pending order Sjogren's Ab - S SA/SSB (ANTI-Ro/ANTI-La) Pending order Vitamin B1 (Thia mine) Pending order Vitamin B6 (Pyri doxine) Pending order Vitamin B12 Pending order Follow up CLEVE in clinic or telemedicine Pending order Follow up Pending order EMG bilateral lo w ext Pending order Follow up Procedures Code Procedure Name Date Entry Date ORDERS Follow up CLE[facility]-[id number] Documentation of current medicatio ns ORDERS Patient Instructions ORDERS Follow up with Neurologist or [facility]VE ORDERS Patient Instructions ORDERS Other Order ORDERS Patient Instructions ORDERS Follow up with Neurologist or [facility] ORDERS Follow up with Neurologist or [facility]VE ORDERS Patient Instructions ORDERS Follow up [facility]VE ORDERS Obtain outside records 06/22 ORDERS Follow up CLEVE in clinic or telemedicine 2 ORDERS Patient Instructions [facility]-[id number] Documentation of current medicatio ns ORDERS Patient Instructions ORDERS Follow up CLEVE in clinic 2021 [facility]-[id number] Other Referral ORDERS Follow up CLEVE in clinic or telemedicine 2 ORDERS Follow up in clinic or telemedicine 06/16 ORDERS Follow up [facility]VE telemedicine 2 [facility]-[id number] Other Referral ORDERS Hemoglobin A1C ORDERS Vitamin B12 ORDERS Vitamin B1 (Thiamine) 05/12 ORDERS Sjogren's Ab - SSA/SSB (ANTI-Ro/ANTI-La) ORDERS KALEN ORDERS C Reactive Protein (CRP) Qn ORDERS ESR (Sedimentation Rate) 202 01/04/14 ORDERS Glucose Fast & 2hr (2 hr GTT) ORDERS Immunofixation Serum w/Electrophoresis 20/05/14 ORDERS Methylmalonic Acid Serum (MMA) ORDERS Vitamin B6 (Pyridoxine) 2021 CPT-39260 Nerve Conduction 11-12 studies CPT-37277 EMG with NCS (5+ muscles) - 2 limbs 04/08 ORDERS Follow up ORDERS EMG bilateral low ext 02/24 LOINC 40857-8 MMSE [facility]-[id number] Documentation of current medicatio ns ORDERS Follow up [id number] Documentation of current medicatio ns Vital Signs Date Name Value Unit Description Height 66 [in_us] height E&M Heart Rate 70 /min pulse rate BMI (Body Mass Index) 26.24 kg/m2 Bod y Mass Index (Ratio) Weight Measured 73.64 kg weight in kilograms E&M Weight Measured 162 [lb_av] weight E& M Weight Measured 162 [lb_av] weight E& M BP Diastolic 62 mm[Hg] blood pressu re, diastolic BP Systolic 110 mm[Hg] blood pressur e, systolic Immunizations No information available. Advance Directives No information available.
--- OUTSIDE RECORDS SUMMARY | 2025-10-31 00:34 | XMS_ITS | Clinical Summary ---
Author Organization [facility] Address [address] [place] [address] Care Team Providers Care Dynamic Balancer Name Role Phone Jhony Retana MD Primary Care Provider [phone] Allergies Active Allergy Reactions Criticality Noted Date Comments Milk Runny Nose 03/16/2003 Milk - nasal congestion, diarrhea. Milk - nasal congestion, diarrhea. Unlisted Allergen (Include Detail In Comments) Runny Nose 04/03/2004 Significant reactions to trees, grasses, dust mite, ragweed, and Alternaria on skin testing 12/26/01. Significant reactions to trees, grasses, dust mite, ragweed, and Alternaria on skin testing 12/26/01. Medications triamcinolone (ARISTOCORT; KENALOG) 0.1 % cream Apply topically to affected area(s). 0 Active simvastatin (ZOCOR) 10 mg tablet Take 10 mg by mouth once daily in the evening. 1 Active melatonin 3 mg tablet Take 3 mg by mouth. 1 Active levothyroxine (SYNTHROID) 175 mcg tablet Take 175 mcg by mouth once daily. 1 Active guaiFENesin (MUCINEX) 600 mg Extended-Releas e tablet Take 1,200 mg by mouth. 1 Active furosemide (LASIX) 20 mg tablet 1 Active Flovent HFA 220 mcg/actuation inhaler 1 Active dilTIAZem CR (TIAZAC; TAZTIA XT) 180 mg capsule Take 180 mg by mouth. Active cetirizine (ZYRTEC) 10 mg tablet Take 10-20 mg by mouth. 1 Active carbidopa-levod opa, 25-100 mg, (SINEMET 25-100) 25-100 mg tablet 1 Active calcium carbonate-vit D3, 600 mg-400 units, (CALTRATE PLUS 600 MG-400 UNIT TABLET) tablet Take 1 Tablet by mouth 2 times daily. Active azelastine 137 mcg/actuation (ASTELIN) nasal spray 1 Active albuterol HFA (PRO-AIR; VENTOLIN; PROVENTIL) 90 mcg/actuation inhaler INHALE 2 PUFFS INTO THE LUNGS EVERY 6 HOURS NEEDED FOR SHORTNESS OF BREATH. SHAKE BEFORE USING 1 Active diphenhydrAMINE -acetaminophen 25-500 mg (TYLENOL PM) 25-500 mg tablet Take 1 Tablet by mouth. Active carbidopa-levod opa controlled release, 50-200 mg, (SINEMET CR 50-200) 50-200 mg tablet Take 1 Tablet by mouth at bedtime. 2 Active Stool Softener-Stimul ant Laxat 8.6-50 mg tablet Take 1 Tablet by mouth 2 times daily. 2 Active b complex vitamins (VITAMIN B COMPLEX) capsule TAKE 1 CAPSULE BY MOUTH ONCE A DAY 2 Active Refresh Liquigel 1 % ophthalmic solution INSTILL 2 DROP INTO AFFECTED EYE FOUR TIMES A DAY NEEDED FOR DRY EYES 2 Active DULoxetine (CYMBALTA) 30 mg Delayed-release capsule Take 30 mg by mouth at bedtime. 2 Active metoprolol succinate (TOPROL XL) 50 mg sustained-relea se tablet Take 50 mg by mouth once daily. 2 Active One Daily Women 50 Plus 400-120 mcg-mg tab Take 1 Tablet by mouth once daily. 2 Active amantadine HCL (SYMMETREL) 100 mg tablet Take 100 mg by mouth two times daily. 3 Active fluticasone (50 mcg per actuation) nasal solution (FLONASE) SPRAY 1 SPRAY INTO BOTH NOSTRILS TWICE A DAY 2 Active Active Problems No known active problems Family History Medical History Relation Name Comments Cancer-breast No Family History Cancer-ovarian No Family History Social History Tobacco Use Types Packs/Day Years Used Date Smoking Tobacco: Never Smokeless Tobacco: Never Tobacco Cessation:Counseling Given: Not Answered Alcohol Use Standard Drinks/Week Comments Not Currently 0 (1 standard drink = 0.6 oz pur e alcohol) Financial Resource Strain Answer Date R ecorded Difficulty of Paying Living Expenses Not on file 11/20/2021 Difficulty of Paying Living Expenses Not on file 11/20/2021 Comments Unknown Sex and Gender Information Value Date Recorded Sex Assigned at Not on file Legal Sex Female 10:33 AM CDT Gender Identity Not on file Sexual Orientation Not on file Obstetrics History Last Filed Vital Signs Vital Sign Reading Time Taken Comments Blood Pressure 138/64 12/22/2022 2:24 PM [employer] rec heck Pulse 57 12/22/2022 2:24 PM [employer] Temperature 36.6 C (97.9 F) 03/19/2022 11:16 AM CDT Respiratory Rate - - Oxygen Saturation 96% 12/22/2022 2:22 PM [employer] Inhaled Oxygen Concentration - - Weight 73.4 kg (161 lb 14.4 oz) 12/22/2022 2:22 PM [employer] Height - - Body Mass Index - - Plan of Treatment Health Maintenance Due Date Last Done Comments Tetanus booster 1962 Depression screening for age 12+ 1963 BMI (ht and wt on same day) for age 18+ 1969 Hepatitis C screening for age 18-79 1969 Colonoscopy through age 75 1996 Lipids for age 45-75 1996 Pneumococcal series for age 50+ (1 of 1 - PCV) 2001 Zoster (shingles) series for age 50+ (1 of 2) 2001 DEXA/DXA scan for age 65+ 2016 Medicare Wellness for age 65+ 2016 COVID-19 vaccine series (2024- season) 2025 05/13/2023, 09/24/2022, 05/25/2022, Additional history exists Influenza Vaccine (#1) 2025 Mammogram for age 45-75 12/26/2025 12/26/19 25, 12/03/2023, 12/04/2022, Additional history exists RSV vaccine for adults or (1 - 1-dose 75+ series) 2026 Hepatitis B series for 19+ Aged Out N o longer eligible based on patient's age to complete this topic Procedures Procedure Name Priority Date/Time Associated Diagnosis Comments XR MAMMO ALFREDO BILAT SCREEN Routine 12/26/2024 1:40 PM [employer] Visit for screening mammogram from Last 3 Months or Most Recently Relevant to Health Maintenance Results * XR MAMMO ALFREDO BILAT SCREEN (12/26/2024 1:40 PM [employer]) Anatomical Region Laterality Modality BREASTS, Breast Left, Breast Right Bilateral Mammography Impressions 12/26/2024 3:12 PM [employer] There is no radiographic evidence for malignancy. Recommend annual mammograms. MAMMOGRAM ASSESSMENT: ACR 1 Negative PATIENTS: You will also receive a letter with your examination results in an easy to read format. If you have questions about your results, please contact your referring provider. Narrative 12/26/2024 3:12 PM [employer] For Patients: As a result of the Century Cures Act, medical imaging exams and procedure reports are released immediately into your electronic medical record. You may view this report before your referring provider. If you have questions, please contact your health care provider. XR MAMMO ALFREDO BILAT SCREEN [[id number]] CLINICAL HISTORY: This is an asymptomatic 74 y.o. patient. INDICATION FOR EXAM: Mammogram Screening. TECHNIQUE: CC & MLO views were obtained. This study was evaluated with the assistance of Computer-Aided Detection. Breast Tomosynthesis was used in interpretation. COMPARISON FILM: Yes 12/03/23 [facility] 11/23/22 [facility] FINDINGS: There are scattered areas of fibroglandular density. There are no dominant masses, suspicious micro calcifications or areas of architectural distortion. Jhony Retana MD MAMMO Final Result from Last 3 Months or Most Recently Relevant to Health Maintenance Insurance [facility] MEDICARE PB ONLY MEDICARE PART A HB ONLY MEDICARE PART B HB ONLY Advance Directives Documents on File Type Date Recorded Patient Popcorn Vendor Expl anation Healthcare Directive 06/29/2019 12:00 AM 06/29/19 Power of Appliquer Zigzag 01/24/1998 12:00 AM Care Teams Dynamic Balancer Relationship Specialty [place] [address] [place] [id number] PCP - General Family Practice 05/19/21
== END 2025-10-30 09:22 | disposition home or self-care (01) ==
LOC: NPINS 09:21
PROVIDERS: PCP Family Medicine; Visit Provider Nurse Practitioner Gerontology
DX: D64.9 Anemia, unspecified (principal); I10 Essential (primary) hypertension; E03.9 Hypothyroidism, unspecified; E78.5 Hyperlipidemia, unspecified
CPT/HCPCS: 80048; 80061; 84443; 85025